=== PATIENT | female | born 1955 | race Caucasian/White ===

== ENCOUNTER 2016-12-16 04:46 | Inpatient (IN) | payer OTHER ==
[~2016-12-16] VITALS: Ht 162.6 cm; Wt 56.2 kg
[2016-12-16 07:00] VITALS: BP 132/71; PULSE 98; RESP 18
[2016-12-16 07:44] VITALS: BMI 21.7
[2016-12-16] MEDS ORDERED: HYDROCODONE/APAP (5/325) TAB PO PRN (09:30)
[2016-12-16] MEDS ORDERED: morphine 2 MG INJ IV PRN (09:30)
[2016-12-16] MEDS ORDERED: ONDANSETRON 4 MG INJ IV PRN (09:30)
[2016-12-16] MEDS ORDERED: NACL 0.9% 3 ML SYG IV SCH (09:30)
[2016-12-16] MEDS ORDERED: DOCUSATE SODIUM 100 MG CAP PO PRN (09:30)
[2016-12-16] MEDS ORDERED: ZOLPIDEM 5 MG TAB PO PRN (09:30)
--- NOTE | 2016-12-16 10:47 | HP ---
Date/Time of Note Date/Time of Note DATE: 12/16/16 TIME: 10:38 Assessment/Plan VTE Prophylaxis VTE Prophylaxis Intervention: SCD's Lines/Catheters IV [facility]from [facility] Saline Lock Assessment/Plan Chief Complaint/Hosp Course 1. Pleuritic chest pain secondary to left-sided pleural effusion with possible underlying lung mass Patient has no evidence of ACS with normal EKG and troponin at outside facility , pain is related to the left-sided pleural effusion CT at outside hospital shows questionable malignancy Repeat CT chest with IV contrast will obtain CT abdomen pelvis with IV contrast as well Follow-up on tumor markers Pain control Pulmonology consultation Thoracentesis for diagnostic evaluation if the patient has sufficient fluid, will follow-up on CT chest Prophylaxis: SCDs Problems: HPI/ROS Admit Date/Time Admit Date/Time Dec 16, 2016 at 07:37 Hx of Present Illness Patient is a 61-year-old female with no medical history. Patient presents with left-sided chest pain for 2 months as well as 18 pound weight loss over the past 3 months. Patient states that she has been feeling somewhat depressed over the past month. Patient states that she receives routine monitoring for malignancy as she has a strong family history for breast cancer and uterine cancer. Patient states that she had colonoscopy a year ago that was negative as well as Pap smear and mammogram a year ago that were also normal. Patient presented to an outside hospital where she had a CT chest that showed a mass in the left chest concerning for malignancy, patient has no history of tobacco abuse and no history of exposure to industrial chemicals. Patient states that the pain is in her left chest as well as her left axillary region extending into her left back. Patient denies any cardiac history denies any nausea vomiting or diarrhea. ROS Constitutional: improved, no complaints Eyes: no complaints ENT: no complaints Respiratory: no complaints Cardiovascular: chest pain Gastrointestinal: no complaints Genitourinary: no complaints Musculoskeletal: no complaints Skin: no complaints Neurologic: no complaints Endocrine: no complaints Lymphatic: no complaints Psychological: nl mood/affect, no complaints Immunologic: no complaints PMH/Family/Social Past Medical History Medical History: no pertinent history Past Surgical History Past Surgical Hx: no surgical history Family History Significant Family History: cancer (History of breast cancer and uterine cancer in her family ) Social History Alcohol Use: none Smoking Status: Never smoker Drug Use: none Exam/Review of Systems Vital Signs Vitals Vital Signs Date Time Temp Pulse Resp B/P Pulse Ox O2 Delivery O2 Flow Rate FiO2 12/16/16 07:00 98.5 98 18 132/71 96 Room Air Exam Constitutional: alert, oriented Respiratory: clear to auscultation Cardiovascular: regular rate and rhythm Gastrointestinal: soft, No distended Musculoskeletal: nl extremities to inspection Medications Medications Current Medications Ondansetron HCl (Zofran Inj) 4 mg Q6H PRN IV NAUSEA AND/OR VOMITING; Start at 09:30 Acetaminophen (Tylenol Tab) 650 mg Q6H PRN PO PAIN LEVEL 1-3 OR FEVER; Start at 09:30 Acetaminophen/ Hydrocodone Bitart ([place] (5/325)) 1 tab Q6H PRN PO MODERATE PAIN LEVEL 4-6; Start 12/16/16 at 09:30 Morphine Sulfate (morphine) 2 mg Q4H PRN IV SEVERE PAIN LEVEL 7-10; Start 12/16 at 09:30 Docusate Sodium (Colace) 100 mg Q12H PRN PO CONSTIPATION; Start 12/16/16 at 09: 30 Zolpidem Tartrate 5 mg 5 mg QHS PRN PO SLEEP; Start 12/16/16 at 09:30 Sodium Chloride (1/2 NS) 1,000 ml @ 125 mls/hr Q8H IV ; Start 12/16/16 at 10:30 DARY PAZ Dec 16, 2016 10:47
[2016-12-16] MEDS ORDERED: IBUPROFEN 400 MG TAB PO PRN (11:00)
[2016-12-16] MEDS: SOD CHLORIDE 0.45% 1,000 ML IV SCH ×2 (11:03→17:53)
[2016-12-16] MEDS: ACETAMINOPHEN 325 MG TAB PO PRN (11:03)
[2016-12-16 12:58] LABS: CANCER ANTIGEN 125 43.6 U/ml (0.0-35.0); CARCINOEMBRYONIC ANTIGEN 1.1 ng/ml (0.0-5.0)
[2016-12-16 13:02] LABS: CANCER ANTIGEN 19-9 17.9 U/ml (0.0-37.0)
[2016-12-16] MEDS ORDERED: IOHEXOL 300MG/ML 150 ML BTL ONE (14:40)
[2016-12-16] MEDS ORDERED: SOD CHLORIDE 0.9% 100 ML ONE (14:40)
[2016-12-16 19:22] VITALS: BP 134/74; RESP 22
[2016-12-17] MEDS: SOD CHLORIDE 0.45% 1,000 ML IV SCH ×3 (02:00→18:12)
[2016-12-17 05:27] LABS: BASOPHILS % 0.5 % (0.0-2.0); EOSINOPHILS # 0.1 10^3/ul (0.0-0.5); EOSINOPHILS % 0.6 % (0.0-7.0); HEMATOCRIT 36.7 % (37.0-47.0); HEMOGLOBIN 12.4 g/dl (12.0-16.0); LYMPHOCYTES # 2.3 10^3/ul (0.8-2.9); LYMPHOCYTES % 28.9 % (15.0-51.0); MEAN CORPUSCULAR HEMOGLOBIN 30.2 pg (29.0-33.0); MEAN CORPUSCULAR HGB CONC 33.8 g/dl (32.0-37.0); MEAN CORPUSCULAR VOLUME 89.3 fl (82.0-101.0); MEAN PLATELET VOLUME 9.6 fl (7.4-10.4); MONOCYTE # 0.6 10^3/ul (0.3-0.9); MONOCYTES % 7.9 % (0.0-11.0); NEUTROPHIL # 4.9 10^3/ul (1.6-7.5); NEUTROPHILS % 61.8 % (39.0-77.0); PLATELET COUNT 362 10^3/UL (140-415); RED BLOOD COUNT 4.11 10^6/ul (4.20-5.40); RED CELL DISTRIBUTION WIDTH 13.2 % (11.5-14.5)
[2016-12-17 05:49] LABS: CALCIUM 9.6 mg/dl (8.4-10.2); CHOL/HDL RATIO 4.2 RATIO; CREATININE 0.58 mg/dl (0.44-1.00); MAGNESIUM 1.9 mg/dl (1.7-2.5); PHOSPHORUS 3.8 mg/dl (2.5-4.9); POTASSIUM 4.1 mmol/L (3.5-5.1)
[2016-12-17 06:02] LABS: T3 UPTAKE 34.1 % (23.5-40.5)
--- NOTE | 2016-12-17 09:18 | RADRPT ---
PROCEDURE: CT Chest, Abdomen and Pelvis with contrast. CLINICAL INDICATION: Chest pain. Left pleural effusion for 2 months. Weight loss of 18 pounds ov er the past 3 months. TECHNIQUE: CT scan of the chest, abdomen, and pelvis with intravenous contrast was performed with helical axial sections. The patient was scanned during intravenous injection of 100 ml of Omnipaque -300 intravenous contrast. 2-D coronal reformatted images were obtained from the axial source image s. Total exam DLP is 499.80 mGy-cm. CTDIvol is 7.08 MGy. One or more of the following dose reduct ion techniques were used: Automated exposure control, adjustment of the mA and/or kV according to pa tient size, use of iterative reconstruction technique. COMPARISON: None available FINDINGS: CT chest: There is a spiculated nodule in the left lung apex measuring approximately 3.4 x 2.7 cm in AP and tr ansverse dimensions. There are several other pulmonary nodules with a 1.0 x 1.4 cm nodule in the silva perior segment of the left lower lobe superiorly, multiple small nodules and the irregular thickenin g along the left major fissure, a large nodule in the left major fissure laterally measuring 1.1 x 1 .2 cm, a nodule in the lingula superiorly measuring 1.3 x 0.7 cm, a nodule in the left lower lobe an terior basal segment measuring 0.9 x 0.6 cm, a nodule in the lingula inferiorly measuring 1.1 x 0.8 cm, a nodule in the left lung base measuring 0.9 by a 0.8 cm, and a peripheral pleural based nodule in the right upper lobe measuring 0.3 cm. There is a small left pleural effusion and associated left basilar atelectasis. There is no right p leural effusion. There is no other airspace or interstitial disease. The mediastinum and мария are normal with no lymphadenopathy or mass. The thoracic aorta is not dilated. There is calcification in the aorta consistent with atheroscleros is. There is no pericardial effusion. The heart size is normal. CT abdomen: The liver is normal in size and attenuation. There are several small low attenuation nodules with a 0.8 x 0.5 cm nodule in the lateral segment of the left lobe, a 0.6 x 0.6 cm nodule in the lateral s egment of the left lobe inferiorly, a 0.5 x 0.5 cm nodule inferiorly in the posterior segment of the right lower lobe, and a 0.9 x 0.6 cm nodule in the posterior segment of the right lobe inferiorly. Multiple gallstones are present in the gallbladder. There is no gallbladder wall thickening or flui d around the gallbladder. The bile ducts are normal. The spleen is normal in size. There is no focal splenic lesion. The pancreas is normal with no mass or evidence of pancreatitis. Both adrenals are normal with no enlargement or mass. Both kidneys demonstrate normal contrast enhancement. There is no renal mass or hydronephrosis. The abdominal aorta is not dilated. There is calcification in the aorta consistent with atherosclero sis. There is no retroperitoneal lymphadenopathy or mass. There is diverticulosis of the descending colon and sigmoid colon. There is no evidence of divertic ulitis. The bowel and mesentery are otherwise normal. There is no free fluid or free gas. CT pelvis: There is no pelvic lymphadenopathy or mass. The bladder and distal ureters are normal. The periappendiceal region is unremarkable with no evidence of appendicitis. There is diverticulosis of the descending colon and sigmoid colon. There is no evidence of divertic ulitis. The bowel and mesentery are otherwise normal. There is no free fluid or free gas. Osseous structures: There are mild degenerative changes of the spine. There is no fracture or lytic lesion. IMPRESSION: 1. Spiculated nodule in the left lung apex measuring 3.4 x 2.7 cm consistent with neoplasm. Multip le smaller nodules throughout the left lung and a single small nodule in the right lung. These are also suspicious for neoplasm. 2. Atherosclerosis. 3. Several small low attenuation nodules in the liver which may be benign or malignant. The larges t measures 0.9 cm in maximal dimension. 4. Gallstones in the gallbladder. No evidence of cholecystitis. 5. Diverticulosis of the descending colon and sigmoid colon. No evidence of diverticulitis. 6. Mild degenerative changes of the spine. RPTAT: QQ .Geremias Kc MD, MD Date Time Electronically viewed and signed by .Geremias Kc MD, on 12/17/2016 09:18 .R/
[2016-12-17 09:43] VITALS: BP 116/56; RESP 18
--- NOTE | 2016-12-17 13:06 | CONS ---
Date/Time of Note Date/Time of Note DATE: 12/17/16 TIME: 13:01 Assessment/Plan Assessment/Plan Additional Assessment/Plan CT chest was reviewed from yesterday which is showing a large left upper lobe apical mass with atelectasis involving the left lower lobe as well. There is a small left pleural effusion. Multiple other small nodules are identified in the left upper lobe area as well. Assessment recommendations; 1. Patient admitted with shortness of breath as well as chest pain due to left lower lobe atelectasis with pleurisy. 2. CT findings are highly worrisome for lung malignancy with possibly intrapulmonary metastasis. 3. Likely left lower lobe endobronchial lesion as well. Patient is scheduled for bronchoscopy tomorrow the procedure was explained to her in detail she is agreeable. If the bronchoscopy is nondiagnostic patient would need to have a CT-guided biopsy of the left upper lobe mass lesion. Consultation Date/Type/Reason Admit Date/Time Dec 16, 2016 at 07:37 Date of Consultation: Dec 17, 2016 Type of Consultation: Pulmonary Reason for Consultation Pulmonary consultation requested for evaluation of left upper lobe lung mass. History presenting; patient is a very pleasant 61-year-old lady who came into the emergency room yesterday with complaints of shortness of breath as well as left-sided chest pain which is brought on by deep breathing and walking. Patient also complains of scant cough without any sputum production or hemoptysis. Patient has lost 18 pounds over the last 2 or 3 months. Past medical history; history of breast implants. No other medical history. Medications; reviewed. Allergies; penicillin. Social history; patient never smoked. No history of alcohol or drug abuse. 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 Family history; family history of breast cancer. Patient has 2 daughters. She is . Review systems; denies any headache, visual changes, sinus symptoms, denies any hemoptysis. Complains of cough with left-sided sharp chest pain brought on by deep breathing. Has lost 15-18 pounds over the last 2-3 months. Denies any abdominal pain, nausea vomiting. Melena hematochezia edema. Denies any arthritis symptoms. Any skin changes. General exam; middle-aged woman, awake alert currently in no distress. Eyes: no complaints ENT: no complaints Respiratory: no complaints Cardiovascular: chest pain Gastrointestinal: no complaints Genitourinary: no complaints Musculoskeletal: no complaints Skin: no complaints Neurologic: no complaints Lymphatic: no complaints Psychological: nl mood/affect, no complaints Immunologic: no complaints Past Medical History Medical History: no pertinent history Past Surgical History Past Surgical Hx: no surgical history Social History Alcohol Use: none Smoking Status: Never smoker Drug Use: none Exam/Review of Systems Vital Signs Vitals Vital Signs Date Time Temp Pulse Resp B/P Pulse Ox O2 Delivery O2 Flow Rate FiO2 12/17/16 09:43 98.1 82 18 116/56 96 12/16/16 07:00 Room Air Intake and Output 12/16/16 12/16/16 12/17/16 15:00 23:00 07:00 Intake Total 1900 ml 1725 ml Balance 1900 ml 1725 ml Exam HEENT exam; supple neck, no JVD. No lymphadenopathy. Midline trachea. No thyromegaly. Pharynx is clear. Patient has a few missing teeth. Pupils are midsize and reactive to light. Chest exam; diminished breath sound left lower lobe. Rest of the lung souza are clear. S1-S2 audible, no murmurs. Regular rhythm. Abdomen exam; soft, nondistended. Nontender. No organomegaly. Bowel sounds audible. Extremity exam; no peripheral edema. No clubbing. Pulses 2+ bilaterally. [employer] exam; no focal deficit. Results Result Diagram: 12/17/165 12/17/165 Results 24 hrs Laboratory Tests Test 12/17/16 04:55 White Blood Count 8.0 Red Blood Count 4.11 L Hemoglobin 12.4 Hematocrit 36.7 L Mean Corpuscular Volume 89.3 Mean Corpuscular Hemoglobin 30.2 Mean Corpuscular Hemoglobin Concent 33.8 Red Cell Distribution Width 13.2 Platelet Count 362 Mean Platelet Volume 9.6 Neutrophils % 61.8 Lymphocytes % 28.9 Monocytes % 7.9 Eosinophils % 0.6 Basophils % 0.5 Nucleated Red Blood Cells % 0.0 Neutrophils # 4.9 Lymphocytes # 2.3 Monocytes # 0.6 Eosinophils # 0.1 Basophils # 0.0 Nucleated Red Blood Cells # 0.0 Sodium Level 143 Potassium Level 4.1 Chloride Level 101 Carbon Dioxide Level 29 Anion Gap 17 H Blood Urea Nitrogen 9 Creatinine 0.58 Glucose Level 94 Hemoglobin A1c 5.8 Calcium Level 9.6 Phosphorus Level 3.8 Magnesium Level 1.9 Troponin I < 0.012 Triglycerides Level 103 Cholesterol Level 190 LDL Cholesterol, Calculated 124 HDL Cholesterol 45 Cholesterol/HDL Ratio 4.2 Free Thyroxine Index 3.51 Thyroxine (T4) 10.3 Triiodothyronine (T3) Uptake 34.1 Medications Medications Current Medications Ondansetron HCl (Zofran Inj) 4 mg Q6H PRN IV NAUSEA AND/OR VOMITING; Start at 09:30 Acetaminophen (Tylenol Tab) 650 mg Q6H PRN PO PAIN LEVEL 1-3 OR FEVER Last administered on 12/16/16 11:03; Admin Dose 650 MG; Start 12/16/16 at 09:30 Acetaminophen/ Hydrocodone Bitart ([place] (5/325)) 1 tab Q6H PRN PO MODERATE PAIN LEVEL 4-6; Start 12/16/16 at 09:30 Morphine Sulfate (morphine) 2 mg Q4H PRN IV SEVERE PAIN LEVEL 7-10; Start 12/16 at 09:30 Docusate Sodium (Colace) 100 mg Q12H PRN PO CONSTIPATION; Start 12/16/16 at 09: 30 Zolpidem Tartrate 5 mg 5 mg QHS PRN PO SLEEP; Start 12/16/16 at 09:30 Sodium Chloride (1/2 NS) 1,000 ml @ 125 mls/hr Q8H IV Last administered on 02:00; Admin Dose 125 MLS/HR; Start 12/16/16 at 10:30 Ibuprofen (Motrin) 400 mg Q6H PRN PO PAIN OR TEMP ABOVE 38C; Start 12/16/16 at 11:00 KARINA POLANCO Dec 17, 2016 13:06
--- NOTE | 2016-12-17 17:45 | PN ---
Date/Time of Note Date/Time of Note DATE: 12/17/16 TIME: 17:37 Assessment/Plan VTE Prophylaxis VTE Prophylaxis Intervention: SCD's Lines/Catheters [facility] Peripheral IV Assessment/Plan Chief Complaint/Hosp Course 1. Pleuritic chest pain secondary to left-sided pleural effusion with underlying lung masses CT scan chest shows mass in the left chest with multiple smaller nodules as well as a nodule in the right lung Pulmonology consultation appreciated, plan is for bronchoscopy tomorrow with possible biopsy, if biopsy cannot be obtained via bronchoscopy the patient will need a CT-guided biopsy CT abdomen pelvis shows no obvious malignancy in the abdomen Have obtained oncology consultation with Dr. Bonilla Pain control Of note patient has no history of tobacco abuse or exposure to industrial chemicals Thoracentesis per pulmonology, at this point it appears that there is insufficient fluid for paracentesis Prophylaxis: SCDs Problems: Subjective 24 Hr Interval Summary Constitutional: no complaints Exam/Review of Systems Vital Signs Vitals Vital Signs Date Time Temp Pulse Resp B/P Pulse Ox O2 Delivery O2 Flow Rate FiO2 12/17/16 09:43 98.1 82 18 116/56 96 12/16/16 07:00 Room Air Intake and Output 12/16/16 12/16/16 12/17/16 15:00 23:00 07:00 Intake Total 1900 ml 1725 ml Balance 1900 ml 1725 ml Exam Constitutional: alert, oriented Respiratory: clear to auscultation Cardiovascular: regular rate and rhythm Gastrointestinal: soft, No distended Musculoskeletal: nl extremities to inspection Results Result Diagram: 12/17/16 0455 12/17/16 0455 Results 24 hrs Laboratory Tests Test 12/17/16 04:55 White Blood Count 8.0 Red Blood Count 4.11 L Hemoglobin 12.4 Hematocrit 36.7 L Mean Corpuscular Volume 89.3 Mean Corpuscular Hemoglobin 30.2 Mean Corpuscular Hemoglobin Concent 33.8 Red Cell Distribution Width 13.2 Platelet Count 362 Mean Platelet Volume 9.6 Neutrophils % 61.8 Lymphocytes % 28.9 Monocytes % 7.9 Eosinophils % 0.6 Basophils % 0.5 Nucleated Red Blood Cells % 0.0 Neutrophils # 4.9 Lymphocytes # 2.3 Monocytes # 0.6 Eosinophils # 0.1 Basophils # 0.0 Nucleated Red Blood Cells # 0.0 Sodium Level 143 Potassium Level 4.1 Chloride Level 101 Carbon Dioxide Level 29 Anion Gap 17 H Blood Urea Nitrogen 9 Creatinine 0.58 Glucose Level 94 Hemoglobin A1c 5.8 Calcium Level 9.6 Phosphorus Level 3.8 Magnesium Level 1.9 Troponin I < 0.012 Triglycerides Level 103 Cholesterol Level 190 LDL Cholesterol, Calculated 124 HDL Cholesterol 45 Cholesterol/HDL Ratio 4.2 Free Thyroxine Index 3.51 Thyroxine (T4) 10.3 Triiodothyronine (T3) Uptake 34.1 Medications Medications Current Medications Ondansetron HCl (Zofran Inj) 4 mg Q6H PRN IV NAUSEA AND/OR VOMITING; Start at 09:30 Acetaminophen (Tylenol Tab) 650 mg Q6H PRN PO PAIN LEVEL 1-3 OR FEVER Last administered on 12/16/16 11:03; Admin Dose 650 MG; Start 12/16/16 at 09:30 Acetaminophen/ Hydrocodone Bitart ([place] (5/325)) 1 tab Q6H PRN PO MODERATE PAIN LEVEL 4-6; Start 12/16/16 at 09:30 Morphine Sulfate (morphine) 2 mg Q4H PRN IV SEVERE PAIN LEVEL 7-10; Start 12/16 at 09:30 Docusate Sodium (Colace) 100 mg Q12H PRN PO CONSTIPATION; Start 12/16/16 at 09: 30 Zolpidem Tartrate 5 mg 5 mg QHS PRN PO SLEEP; Start 12/16/16 at 09:30 Sodium Chloride (1/2 NS) 1,000 ml @ 125 mls/hr Q8H IV Last administered on 02:00; Admin Dose 125 MLS/HR; Start 12/16/16 at 10:30 Ibuprofen (Motrin) 400 mg Q6H PRN PO PAIN OR TEMP ABOVE 38C; Start 12/16/16 at 11:00 DARY PAZ Dec 17, 2016 17:45
[2016-12-17 20:52] VITALS: BP 124/66; RESP 16
[2016-12-18] MEDS: SOD CHLORIDE 0.45% 1,000 ML IV SCH ×3 (05:22→18:30)
[2016-12-18 05:44] LABS: CALCIUM 9.9 mg/dl (8.4-10.2); CREATININE 0.62 mg/dl (0.44-1.00); POTASSIUM 3.9 mmol/L (3.5-5.1)
--- NOTE | 2016-12-18 08:58 | CONS ---
Date/Time of Note Date/Time of Note DATE: 12/18/16 TIME: 08:56 Assessment/Plan Assessment/Plan Additional Assessment/Plan Assessment and recommendations; 1. Patient admitted with pleuritic left chest pain with discovery of large left upper lobe apical mass with possibly left lower lobe endobronchial lesion causing atelectasis. There is also high clinical suspicion of left intrapulmonary metastasis. Continue current treatment. Patient scheduled for a bronchoscopy today, if the bronchoscopy findings are negative then the patient would need to have a CT- guided biopsy of the left upper lobe mass lesion. I did have a very detailed discussion with the patient's daughter as well as the patient herself in the room and answered all their questions. Consultation Date/Type/Reason Admit Date/Time Dec 16, 2016 at 07:37 Initial Consult Date 12/17/16 Type of Consultation: Pulmonary 24 HR Interval Summary Free Text/Dictation Patient's condition is stable. Denies any further chest pain, shortness of breath. Denies any cough, sputum production or hemoptysis. General exam; middle-aged woman, awake alert currently in no distress. Exam/Review of Systems Vital Signs Vitals Vital Signs Date Time Temp Pulse Resp B/P Pulse Ox O2 Delivery O2 Flow Rate FiO2 12/17/16 20:52 98.2 86 16 124/66 98 12/16/16 07:00 Room Air Intake and Output 12/17/16 12/17/16 12/18/16 15:00 23:00 07:00 Intake Total 1320 ml 1300 ml Balance 1320 ml 1300 ml Exam HEENT exam; supple neck, no JVD. No lymphadenopathy. Midline trachea. No thyromegaly. Pharynx is clear. Patient has multiple missing teeth. Chest exam; diminished breath sounds left lower lobe. Rest of the lung souza are clear. S1-S2 audible, no murmurs. Regular rhythm. Abdomen exam; soft, no organomegaly. Bowel sounds audible. Extremity exam; no peripheral edema. No clubbing. Pulses 1+ bilaterally. 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 Results Result Diagram: 12/17/16 0455 12/18/16 0459 Results 24 hrs Laboratory Tests Test 12/18/16 04:59 Sodium Level 144 Potassium Level 3.9 Chloride Level 99 Carbon Dioxide Level 29 Anion Gap 20 H Blood Urea Nitrogen 14 Creatinine 0.62 Glucose Level 102 Calcium Level 9.9 Medications Medications Current Medications Ondansetron HCl (Zofran Inj) 4 mg Q6H PRN IV NAUSEA AND/OR VOMITING; Start at 09:30 Acetaminophen (Tylenol Tab) 650 mg Q6H PRN PO PAIN LEVEL 1-3 OR FEVER Last administered on 12/16/16 11:03; Admin Dose 650 MG; Start 12/16/16 at 09:30 Acetaminophen/ Hydrocodone Bitart ([place] (5/325)) 1 tab Q6H PRN PO MODERATE PAIN LEVEL 4-6; Start 12/16/16 at 09:30 Morphine Sulfate (morphine) 2 mg Q4H PRN IV SEVERE PAIN LEVEL 7-10; Start 12/16 at 09:30 Docusate Sodium (Colace) 100 mg Q12H PRN PO CONSTIPATION; Start 12/16/16 at 09: 30 Zolpidem Tartrate 5 mg 5 mg QHS PRN PO SLEEP; Start 12/16/16 at 09:30 Sodium Chloride (1/2 NS) 1,000 ml @ 125 mls/hr Q8H IV Last administered on 05:22; Admin Dose 125 MLS/HR; Start 12/16/16 at 10:30 Ibuprofen (Motrin) 400 mg Q6H PRN PO PAIN OR TEMP ABOVE 38C; Start 12/16/16 at 11:00 KARINA POLANCO Dec 18, 2016 08:58
[2016-12-18 09:29] VITALS: BP 115/71; RESP 18
--- NOTE | 2016-12-18 14:27 | PN ---
Date/Time of Note Date/Time of Note DATE: 12/18/16 TIME: 14:27 Assessment/Plan VTE Prophylaxis VTE Prophylaxis Intervention: SCD's Lines/Catheters IV [facility] Type (from [facility]): Saline Lock Assessment/Plan Chief Complaint/Hosp Course 1. Spiculated nodule in the left lung apex measuring 3.42.7 cm. Possible neoplasm. The patient being followed by pulmonology. The patient is scheduled for a bronchoscopy on 12/19/2016. Oncology to follow the patient. 2. Atypical chest pain. Most probably secondary to underlying left-sided spiculated lung mass. Largely resolved. 3. Fluids, electrolytes, and nutrition. Regular diet. 4. DVT prophylaxis with bilateral sequential compression devices. 5. Gastrointestinal prophylaxis. Not indicated. 6. Plan. Continue current management. Await bronchoscopy. Case discussed with Dr. Bolton. Problems: Subjective 24 Hr Interval Summary Free Text/Dictation Denies any chest pain. Complains of dry cough. Exam/Review of Systems Vital Signs Vitals Vital Signs Date Time Temp Pulse Resp B/P Pulse Ox O2 Delivery O2 Flow Rate FiO2 12/18/16 09:29 98.1 85 18 115/71 96 12/16/16 07:00 Room Air Intake and Output 12/17/16 12/17/16 12/18/16 15:00 23:00 07:00 Intake Total 1320 ml 1300 ml Balance 1320 ml 1300 ml Exam General: Adequately build 61 year-old female lying in bed in no apparent distress. HEENT: Normocephalic, atraumatic. Eyes: Anicteric sclerae, conjunctivae clear. ENT: Nasal septum midline, oral mucosa moist. Neck supple, no JVD noticed. Respiratory: Bilaterally clear breath sounds. No use of accessory muscles of respiration. No adventitious breath sounds. Cardiovascular: S1, S2 heard. No murmurs or gallops. Abdomen: Soft, nontender, and nondistended. Bowel sounds positive in all 4 quadrants. Genitourinary: Deferred. Extremities: No cyanosis, no clubbing, no edema. Peripheral pulses palpable. Neurologic: Cranial nerves II through XII grossly intact. The patient is awake, alert, and oriented. Skin: Normal skin turgor. No skin rashes. Results Result Diagram: 12/17/16 0455 12/18/16 0459 Results 24 hrs Laboratory Tests Test 12/18/16 04:59 Sodium Level 144 Potassium Level 3.9 Chloride Level 99 Carbon Dioxide Level 29 Anion Gap 20 H Blood Urea Nitrogen 14 Creatinine 0.62 Glucose Level 102 Calcium Level 9.9 Medications Medications Current Medications Ondansetron HCl (Zofran Inj) 4 mg Q6H PRN IV NAUSEA AND/OR VOMITING; Start at 09:30 Acetaminophen (Tylenol Tab) 650 mg Q6H PRN PO PAIN LEVEL 1-3 OR FEVER Last administered on 12/16/16 11:03; Admin Dose 650 MG; Start 12/16/16 at 09:30 Acetaminophen/ Hydrocodone Bitart ([place] (5/325)) 1 tab Q6H PRN PO MODERATE PAIN LEVEL 4-6; Start 12/16/16 at 09:30 Morphine Sulfate (morphine) 2 mg Q4H PRN IV SEVERE PAIN LEVEL 7-10; Start 12/16 at 09:30 Docusate Sodium (Colace) 100 mg Q12H PRN PO CONSTIPATION; Start 12/16/16 at 09: 30 Zolpidem Tartrate 5 mg 5 mg QHS PRN PO SLEEP; Start 12/16/16 at 09:30 Sodium Chloride (1/2 NS) 1,000 ml @ 125 mls/hr Q8H IV Last administered on 05:22; Admin Dose 125 MLS/HR; Start 12/16/16 at 10:30 Ibuprofen (Motrin) 400 mg Q6H PRN PO PAIN OR TEMP ABOVE 38C; Start 12/16/16 at 11:00 SREEDHAR COOK NP Dec 18, 2016 14:27
--- NOTE | 2016-12-18 15:16 | CONS ---
Date/Time of Note Date/Time of Note DATE: 12/18/16 TIME: 14:51 Assessment/Plan Assessment/Plan Chief Complaint/Hosp Course 61 yo female with a left upper lobe apical mass as well numerous left lung nodules concerning for intrapulmonary metastasis. Pt's CT Abdomen demonstrates lesions concerning for liver metastasis. Pt is scheduled for bronchoscopy today. If the bronchoscopy is positive for malignancy, we will need to further evaluate the liver to see if there is in fact metastatic disease in the liver. I have reviewed the scan with the radiologist who states that the liver lesions are too small to biopsy at this time. -f/u results of bronchoscopic bx -will check CEA for now -further recommendations will be based on above findings. Problems: (1) Lung cancer Qualifiers: Consultation Date/Type/Reason Admit Date/Time Dec 16, 2016 at 07:37 Date of Consultation: Dec 18, 2016 Type of Consultation: oncology Reason for Consultation lung mass Referring Provider: DARY PAZ Hx of Present Illness 61-year-old non smoking female with no significant PMH who presents to [facility] with 2 months of Left sided chest pain accompanied by an 18lb weight loss over 3 months. Patient presented to an outside hospital with similar sx where a CT chest that showed a mass in the left chest concerning for malignancy. She does endorse SOB with her chest pain as well as scant cough without any sputum production or hemoptysis. A Ct chest/ Abdomen and pelvis was done which demonstrated a Spiculated nodule in the left lung apex measuring 3.4 x 2.7 cm consistent with neoplasm as well as m ultiple smaller nodules throughout the left lung and a single small nodule in the right lung. These are also suspicious for neoplasm. Also seen are several small low attenuation nodules in the liver which may be benign or malignant. The largest measures 0.9 cm in maximal dimension. Constitutional: no complaints Eyes: no complaints ENT: no complaints Respiratory: no complaints Cardiovascular: chest pain Gastrointestinal: no complaints Genitourinary: no complaints Musculoskeletal: no complaints Skin: no complaints Neurologic: no complaints Lymphatic: no complaints Psychological: nl mood/affect, no complaints Immunologic: no complaints Past Medical History Medical History: no pertinent history Past Surgical History Past Surgical Hx: no surgical history Family History Significant Family History: no pertinent family hx Social History Alcohol Use: none Smoking Status: Never smoker Drug Use: none Exam/Review of Systems Vital Signs Vitals Vital Signs Date Time Temp Pulse Resp B/P Pulse Ox O2 Delivery O2 Flow Rate FiO2 12/18/16 09:29 98.1 85 18 115/71 96 12/16/16 07:00 Room Air Intake and Output 12/17/16 12/17/16 12/18/16 15:00 23:00 07:00 Intake Total 1320 ml 1300 ml Balance 1320 ml 1300 ml Exam Constitutional: alert, oriented Psych: no complaints Head: atraumatic, normocephalic Eyes: nl conjunctiva ENMT: nl external ears & nose Neck: non-tender, supple Respiratory: clear to auscultation Cardiovascular: nl pulses, regular rate and rhythm Gastrointestinal: soft Musculoskeletal: nl extremities to inspection, nl gait and stance Extremities: normal pulses Results Result Diagram: 12/17/16 0455 12/18/16 0459 Results 24 hrs Laboratory Tests Test 12/18/16 04:59 Sodium Level 144 Potassium Level 3.9 Chloride Level 99 Carbon Dioxide Level 29 Anion Gap 20 H Blood Urea Nitrogen 14 Creatinine 0.62 Glucose Level 102 Calcium Level 9.9 Medications Medications Current Medications Ondansetron HCl (Zofran Inj) 4 mg Q6H PRN IV NAUSEA AND/OR VOMITING; Start at 09:30 Acetaminophen (Tylenol Tab) 650 mg Q6H PRN PO PAIN LEVEL 1-3 OR FEVER Last administered on 12/16/16 11:03; Admin Dose 650 MG; Start 12/16/16 at 09:30 Acetaminophen/ Hydrocodone Bitart ([place] (5/325)) 1 tab Q6H PRN PO MODERATE PAIN LEVEL 4-6; Start 12/16/16 at 09:30 Morphine Sulfate (morphine) 2 mg Q4H PRN IV SEVERE PAIN LEVEL 7-10; Start 12/16 at 09:30 Docusate Sodium (Colace) 100 mg Q12H PRN PO CONSTIPATION; Start 12/16/16 at 09: 30 Zolpidem Tartrate 5 mg 5 mg QHS PRN PO SLEEP; Start 12/16/16 at 09:30 Sodium Chloride (1/2 NS) 1,000 ml @ 125 mls/hr Q8H IV Last administered on 05:22; Admin Dose 125 MLS/HR; Start 12/16/16 at 10:30 Ibuprofen (Motrin) 400 mg Q6H PRN PO PAIN OR TEMP ABOVE 38C; Start 12/16/16 at 11:00 MELONY TAVAREZ M.D. Dec 18, 2016 15:02
[2016-12-18 19:51] VITALS: BP 109/66; RESP 18
[2016-12-19] VITALS (18 sets, daily range): BP systolic 111–146; BP diastolic 54–87; PULSE 66–91; RESP 16–23; Ht 162.6 cm; Wt 56.2 kg
[2016-12-19] MEDS: SOD CHLORIDE 0.45% 1,000 ML IV SCH ×4 (02:30→23:46)
--- NOTE | 2016-12-19 07:14 | PN ---
Date/Time of Note Date/Time of Note DATE: 12/19/16 TIME: 07:13 Assessment/Plan VTE Prophylaxis VTE Prophylaxis Intervention: SCD's Lines/Catheters [facility] [place] Assessment/Plan Chief Complaint/Hosp Course 1. Spiculated nodule in the left lung apex measuring 3.42.7 cm. Possible neoplasm. The patient being followed by pulmonology and oncology. The patient is scheduled for a bronchoscopy on 12/19/2016. 2. Atypical chest pain. Most probably secondary to underlying left-sided spiculated lung mass. Largely resolved. 3. Fluids, electrolytes, and nutrition. Regular diet. 4. DVT prophylaxis with bilateral sequential compression devices. 5. Gastrointestinal prophylaxis. Not indicated. 6. Plan. Continue current management. Await bronchoscopy. Case discussed with Dr. Bolton. Problems: Subjective 24 Hr Interval Summary Free Text/Dictation The patient remains afebrile. Vital signs stable. Exam/Review of Systems Vital Signs Vitals Vital Signs Date Time Temp Pulse Resp B/P Pulse Ox O2 Delivery O2 Flow Rate FiO2 12/18/16 19:51 97.7 89 18 109/66 98 12/16/16 07:00 Room Air Intake and Output 12/18/16 12/18/16 12/19/16 15:00 23:00 07:00 Intake Total 2100 ml 1250 ml Balance 2100 ml 1250 ml Exam General: Adequately build 61 year-old female lying in bed in no apparent distress. HEENT: Normocephalic, atraumatic. Eyes: Anicteric sclerae, conjunctivae clear. ENT: Nasal septum midline, oral mucosa moist. Neck supple, no JVD noticed. Respiratory: Bilaterally clear breath sounds. No use of accessory muscles of respiration. No adventitious breath sounds. Cardiovascular: S1, S2 heard. No murmurs or gallops. Abdomen: Soft, nontender, and nondistended. Bowel sounds positive in all 4 quadrants. Genitourinary: Deferred. Extremities: No cyanosis, no clubbing, no edema. Peripheral pulses palpable. Neurologic: Cranial nerves II through XII grossly intact. The patient is awake, alert, and oriented. Skin: Normal skin turgor. No skin rashes. Results Result Diagram: 12/17/16 0455 12/18/16 0459 Medications Medications Current Medications Ondansetron HCl (Zofran Inj) 4 mg Q6H PRN IV NAUSEA AND/OR VOMITING; Start at 09:30 Acetaminophen (Tylenol Tab) 650 mg Q6H PRN PO PAIN LEVEL 1-3 OR FEVER Last administered on 12/16/16 11:03; Admin Dose 650 MG; Start 12/16/16 at 09:30 Acetaminophen/ Hydrocodone Bitart ([place] (5/325)) 1 tab Q6H PRN PO MODERATE PAIN LEVEL 4-6; Start 12/16/16 at 09:30 Morphine Sulfate (morphine) 2 mg Q4H PRN IV SEVERE PAIN LEVEL 7-10; Start 12/16 at 09:30 Docusate Sodium (Colace) 100 mg Q12H PRN PO CONSTIPATION; Start 12/16/16 at 09: 30 Zolpidem Tartrate 5 mg 5 mg QHS PRN PO SLEEP; Start 12/16/16 at 09:30 Sodium Chloride (1/2 NS) 1,000 ml @ 125 mls/hr Q8H IV Last administered on 02:52; Admin Dose 125 MLS/HR; Start 12/16/16 at 10:30 Ibuprofen (Motrin) 400 mg Q6H PRN PO PAIN OR TEMP ABOVE 38C; Start 12/16/16 at 11:00 SREEDHAR COOK NP Dec 19, 2016 07:14
--- NOTE | 2016-12-19 09:52 | CONS ---
Date/Time of Note Date/Time of Note DATE: 12/19/16 TIME: 09:51 Assessment/Plan Assessment/Plan Additional Assessment/Plan Assessment and recommendations; 1. Patient admitted with shortness of breath due to the discovery of large left upper lobe mass with left lower lobe atelectasis/infiltrate likely from underlying endobronchial lesion involving the left lower lobe. Continue current treatment. Patient scheduled for bronchoscopy today. The bronchoscopy findings are negative patient will need to have a CT-guided biopsy of the left upper lobe lung mass. Consultation Date/Type/Reason Admit Date/Time Dec 16, 2016 at 07:37 Initial Consult Date 12/17/16 Type of Consultation: Pulmonary Referring Provider: DARY PAZ 24 HR Interval Summary Free Text/Dictation Patient condition stable. Complains of chest congestion. Next General exam; elderly woman, awake alert currently in no distress. Exam/Review of Systems Vital Signs Vitals Vital Signs Date Time Temp Pulse Resp B/P Pulse Ox O2 Delivery O2 Flow Rate FiO2 12/19/16 08:33 98.7 87 18 128/87 98 12/16/16 07:00 Room Air Intake and Output 12/18/16 12/18/16 12/19/16 15:00 23:00 07:00 Intake Total 2100 ml 1250 ml Balance 2100 ml 1250 ml Exam HEENT exam; supple neck, no JVD. No lymphadenopathy. Midline trachea. No thyromegaly. Patient has multiple missing teeth. Chest exam; minimally decreased breath sounds left lower lobe. S1-S2 audible, no murmurs. Regular rhythm. Abdomen exam; soft, nontender. No organomegaly. Bowel sounds audible. Extremity exam; no peripheral edema. No clubbing. FOLLOW UP CLERK exam; no focal deficit. Results Result Diagram: 12/17/16 0455 12/18/16 0459 Medications Medications Current Medications Ondansetron HCl (Zofran Inj) 4 mg Q6H PRN IV NAUSEA AND/OR VOMITING; Start at 09:30 Acetaminophen (Tylenol Tab) 650 mg Q6H PRN PO PAIN LEVEL 1-3 OR FEVER Last administered on 12/16/16t 11:03; Admin Dose 650 MG; Start 12/16/16 at 09:30 Acetaminophen/ Hydrocodone Bitart ([place] (5/325)) 1 tab Q6H PRN PO MODERATE PAIN LEVEL 4-6; Start 12/16/16 at 09:30 Morphine Sulfate (morphine) 2 mg Q4H PRN IV SEVERE PAIN LEVEL 7-10; Start 12/16 at 09:30 Docusate Sodium (Colace) 100 mg Q12H PRN PO CONSTIPATION; Start 12/16/16 at 09: 30 Zolpidem Tartrate 5 mg 5 mg QHS PRN PO SLEEP; Start 12/16/16 at 09:30 Sodium Chloride (1/2 NS) 1,000 ml @ 125 mls/hr Q8H IV Last administered on 02:52; Admin Dose 125 MLS/HR; Start 12/16/16 at 10:30 Ibuprofen (Motrin) 400 mg Q6H PRN PO PAIN OR TEMP ABOVE 38C; Start 12/16/16 at 11:00 KARINA POLANCO Dec 19, 2016 09:52
--- NOTE | 2016-12-19 10:07 | CONS ---
Date/Time of Note Date/Time of Note DATE: 12/19/16 TIME: 10:04 Assessment/Plan Assessment/Plan Chief Complaint/Hosp Course 61 yo female with a left upper lobe apical mass as well numerous left lung nodules concerning for intrapulmonary metastasis. Pt's CT Abdomen demonstrates lesions concerning for liver metastasis. Bronchoscopy was not able to access the lesion. Pt will need CT guided lung biopsy. If the bronchoscopy is positive for malignancy, we will need to further evaluate the liver to see if there is in fact metastatic disease in the liver. I have reviewed the scan with the radiologist who states that the liver lesions are too small to biopsy at this time. CEA and CA19-9 are wnl although CA 125 is slightly elevated. -f/u results of CT guided bx -further recommendations will be based on above findings. Problems: Consultation Date/Type/Reason Admit Date/Time Dec 16, 2016 at 07:37 Initial Consult Date 12/18/16 Type of Consultation: Oncology Reason for Consultation lung mass Referring Provider: DARY PAZ 24 HR Interval Summary Free Text/Dictation pt had bronchoscopy today. chest pain and shortness of breath have improved Exam/Review of Systems Vital Signs Vitals Vital Signs Date Time Temp Pulse Resp B/P Pulse Ox O2 Delivery O2 Flow Rate FiO2 12/19/16 08:33 98.7 87 18 128/87 98 12/16/16 07:00 Room Air Intake and Output 12/18/16 12/18/16 12/19/16 15:00 23:00 07:00 Intake Total 2100 ml 1250 ml Balance 2100 ml 1250 ml Exam Constitutional: alert, oriented Psych: no complaints Head: normocephalic Eyes: nl conjunctiva ENMT: nl external ears & nose Neck: non-tender, supple Respiratory: clear to auscultation, normal air movement Cardiovascular: regular rate and rhythm Gastrointestinal: soft Musculoskeletal: nl extremities to inspection, nl gait and stance Results Result Diagram: 12/17/16 0455 12/18/16 0459 Medications Medications Current Medications Ondansetron HCl (Zofran Inj) 4 mg Q6H PRN IV NAUSEA AND/OR VOMITING; Start at 09:30 Acetaminophen (Tylenol Tab) 650 mg Q6H PRN PO PAIN LEVEL 1-3 OR FEVER Last administered on 12/16/16t 11:03; Admin Dose 650 MG; Start 12/16/16 at 09:30 Acetaminophen/ Hydrocodone Bitart ([place] (5/325)) 1 tab Q6H PRN PO MODERATE PAIN LEVEL 4-6; Start 12/16/16 at 09:30 Morphine Sulfate (morphine) 2 mg Q4H PRN IV SEVERE PAIN LEVEL 7-10; Start 12/16 at 09:30 Docusate Sodium (Colace) 100 mg Q12H PRN PO CONSTIPATION; Start 12/16/16 at 09: 30 Zolpidem Tartrate 5 mg 5 mg QHS PRN PO SLEEP; Start 12/16/16 at 09:30 Sodium Chloride (1/2 NS) 1,000 ml @ 125 mls/hr Q8H IV Last administered on t 02:52; Admin Dose 125 MLS/HR; Start 12/16/16 at 10:30 Ibuprofen (Motrin) 400 mg Q6H PRN PO PAIN OR TEMP ABOVE 38C; Start 12/16/16 at 11:00 MELONY TAVAREZ M.D. Dec 19, 2016 10:07
--- NOTE | 2016-12-19 10:37 | EN ---
Date/Time of Note Date/Time of Note DATE: 12/19/16 TIME: 10:35 Event Note Medicine Medicine Event Note This is a bronchoscopy report; Indications; large left upper lobe tumor, left lower lobe atelectasis with small pleural effusion. Bronchoscopy is to rule out endobronchial lesion. Informed consent was obtained from the patient. Patient was intubated by the anesthesiologist after induction of general anesthesia. Bronchoscope was introduced via the endotracheal tube. Distal trachea was normal, rex was sharp and well defined, scope was introduced into the right mainstem bronchus with evaluation of the right upper lobe, bronchus intermedius, superior segment of the lower lobe, middle lobe and lower lobes they were all normal. The scope was then introduced into the left mainstem bronchus with evaluation of the left upper lobe, lingula, superior segment of the lower lobe and lower lobes. They were all completely normal without any endobronchial pathology. The scope was then withdrawn. The patient tolerated the procedure well without any complications. Next Start time was 10 AM finish time was 10:07 AM. KARINA POLANCO Dec 19, 2016 10:37
[2016-12-19] MEDS: ACETAMINOPHEN 325 MG TAB PO PRN (15:46)
[2016-12-20 05:17] LABS: BASOPHIL # 0.1 10^3/ul (0.0-0.1); BASOPHILS % 0.7 % (0.0-2.0); EOSINOPHILS # 0.1 10^3/ul (0.0-0.5); HEMOGLOBIN 12.4 g/dl (12.0-16.0); LYMPHOCYTES # 2.8 10^3/ul (0.8-2.9); MEAN CORPUSCULAR HEMOGLOBIN 30.2 pg (29.0-33.0); MEAN CORPUSCULAR HGB CONC 33.5 g/dl (32.0-37.0); MEAN PLATELET VOLUME 9.6 fl (7.4-10.4); MONOCYTE # 0.6 10^3/ul (0.3-0.9); MONOCYTES % 9.2 % (0.0-11.0); NEUTROPHIL # 3.4 10^3/ul (1.6-7.5); NEUTROPHILS % 48.8 % (39.0-77.0); PLATELET COUNT 371 10^3/UL (140-415); RED BLOOD COUNT 4.11 10^6/ul (4.20-5.40); RED CELL DISTRIBUTION WIDTH 12.9 % (11.5-14.5)
[2016-12-20 05:27] LABS: INR 0.99; PROTIME 13.1 Sec (12.2-14.2)
[2016-12-20 05:28] LABS: PARTIAL THROMBOPLASTIN TIME 28.4 Sec (25.0-35.0)
[2016-12-20 05:35] LABS: BILIRUBIN,INDIRECT 0.4 mg/dl (0-1.1); BILIRUBIN,TOTAL 0.4 mg/dl (0.2-1.3); CALCIUM 9.6 mg/dl (8.4-10.2); CREATININE 0.63 mg/dl (0.44-1.00); POTASSIUM 4.7 mmol/L (3.5-5.1)
[2016-12-20 05:36] LABS: ALBUMIN 3.8 g/dl (3.3-4.9); ALBUMIN/GLOBULIN RATIO 1.31; TOTAL PROTEIN 6.7 g/dl (6.1-8.1)
[2016-12-20 05:42] LABS: PHOSPHORUS 3.9 mg/dl (2.5-4.9)
--- NOTE | 2016-12-20 07:25 | PN ---
Date/Time of Note Date/Time of Note DATE: 12/20/16 TIME: 07:23 Assessment/Plan VTE Prophylaxis VTE Prophylaxis Intervention: SCD's Lines/Catheters IV [facility]from [facility]): Peripheral IV Assessment/Plan Chief Complaint/Hosp Course 1. Spiculated nodule in the left lung apex measuring 3.42.7 cm. Possible neoplasm. The patient being followed by pulmonology and oncology. Status post bronchoscopy on 12/19/2016. Plan for a CT guided biopsy of the lesion. 2. Atypical chest pain. Most probably secondary to underlying left-sided spiculated lung mass. Largely resolved. 3. Fluids, electrolytes, and nutrition. Regular diet. 4. DVT prophylaxis with bilateral sequential compression devices. 5. Gastrointestinal prophylaxis. Not indicated. 6. Plan. Continue current management. Await CT-guided needle biopsy Case discussed with Dr. Bolton. Problems: Subjective 24 Hr Interval Summary Free Text/Dictation Vital signs stable. Exam/Review of Systems Vital Signs Vitals Vital Signs Date Time Temp Pulse Resp B/P Pulse Ox O2 Delivery O2 Flow Rate FiO2 12/19/16 16:13 98.6 95 18 111/54 95 12/19/16 14:10 Room Air 12/19/16 10:18 8.0 Intake and Output 12/19/16 12/19/16 12/20/16 15:00 23:00 07:00 Intake Total 350 ml 970 ml 1065 ml Output Total 0 ml Balance 350 ml 970 ml 1065 ml Exam General: Adequately build 61 year-old female lying in bed in no apparent distress. HEENT: Normocephalic, atraumatic. Eyes: Anicteric sclerae, conjunctivae clear. ENT: Nasal septum midline, oral mucosa moist. Neck supple, no JVD noticed. Respiratory: Bilaterally clear breath sounds. No use of accessory muscles of respiration. No adventitious breath sounds. Cardiovascular: S1, S2 heard. No murmurs or gallops. Abdomen: Soft, nontender, and nondistended. Bowel sounds positive in all 4 quadrants. Genitourinary: Deferred. Extremities: No cyanosis, no clubbing, no edema. Peripheral pulses palpable. Neurologic: Cranial nerves II through XII grossly intact. The patient is awake, alert, and oriented. Skin: Normal skin turgor. No skin rashes. Results Result Diagram: 12/20/16 0439 12/20/16 0440 Results 24 hrs Laboratory Tests Test 12/20/16 04:39 12/20/16 04:40 White Blood Count 7.0 Red Blood Count 4.11 L Hemoglobin 12.4 Hematocrit 37.0 Mean Corpuscular Volume 90.0 Mean Corpuscular Hemoglobin 30.2 Mean Corpuscular Hemoglobin Concent 33.5 Red Cell Distribution Width 12.9 Platelet Count 371 Mean Platelet Volume 9.6 Neutrophils % 48.8 Lymphocytes % 40.0 Monocytes % 9.2 Eosinophils % 1.0 Basophils % 0.7 Nucleated Red Blood Cells % 0.0 Neutrophils # 3.4 Lymphocytes # 2.8 Monocytes # 0.6 Eosinophils # 0.1 Basophils # 0.1 Nucleated Red Blood Cells # 0.0 Prothrombin Time 13.1 Prothrombin Time Ratio 1.0 INR International Normalized Ratio 0.99 Activated Partial Thromboplast Time 28.4 Sodium Level 143 Potassium Level 4.7 Chloride Level 102 Carbon Dioxide Level 30 Anion Gap 16 Blood Urea Nitrogen 13 Creatinine 0.63 Glucose Level 97 Calcium Level 9.6 Phosphorus Level 3.9 Magnesium Level 2.0 Total Bilirubin 0.4 Direct Bilirubin 0.00 Indirect Bilirubin 0.4 Aspartate Amino Transf (AST/SGOT) 20 Alanine Aminotransferase (ALT/SGPT) 29 Alkaline Phosphatase 76 Total Protein 6.7 Albumin 3.8 Globulin 2.90 Albumin/Globulin Ratio 1.31 Medications Medications Current Medications Ondansetron HCl (Zofran Inj) 4 mg Q6H PRN IV NAUSEA AND/OR VOMITING; Start at 09:30 Acetaminophen (Tylenol Tab) 650 mg Q6H PRN PO PAIN LEVEL 1-3 OR FEVER Last administered on 12/19/16t 15:46; Admin Dose 650 MG; Start 12/16/16 at 09:30 Acetaminophen/ Hydrocodone Bitart ([place] (5/325)) 1 tab Q6H PRN PO MODERATE PAIN LEVEL 4-6; Start 12/16/16 at 09:30 Morphine Sulfate (morphine) 2 mg Q4H PRN IV SEVERE PAIN LEVEL 7-10; Start 12/16 at 09:30 Docusate Sodium (Colace) 100 mg Q12H PRN PO CONSTIPATION; Start 12/16/16 at 09: 30 Zolpidem Tartrate 5 mg 5 mg QHS PRN PO SLEEP; Start 12/16/16 at 09:30 Sodium Chloride (1/2 NS) 1,000 ml @ 125 mls/hr Q8H IV Last administered on t 23:46; Admin Dose 125 MLS/HR; Start 12/16/16 at 10:30 Ibuprofen (Motrin) 400 mg Q6H PRN PO PAIN OR TEMP ABOVE 38C; Start 12/16/16 at 11:00 SREEDHAR COOK NP Dec 20, 2016 07:25
[2016-12-20 07:53] VITALS: BP 111/68; RESP 16
--- NOTE | 2016-12-20 10:34 | RADRPT ---
PROCEDURE: CT guided biopsy of left lung mass. CLINICAL INDICATION: Left lung apical mass. TECHNIQUE: Prior to the procedure, informed consent was obtained. Risks including bleeding, infec tion, and pneumothorax were explained to the patient. The patient understood was willing to proceed . A procedural pause was performed. The patient's name, date of , and procedure to be perform ed were verified. Using local anesthetic, sterile technique, and CT guidance, a 20-gauge automated core biopsy needle was used to biopsy the mass in the left lung apex. Multiple passes were made. Adequate tissue was obtained according to the pathologist present during the procedure. The needle was removed. A post biopsy scan was performed. The patient tolerated the procedure well. One or more of the following dose reduction techniques were used: Automated exposure control, adjustment of the mA and/or kV acc ording to patient size, use of iterative reconstruction technique. COMPARISON: No prior study is available for comparison. FINDINGS: Images with the needle in place demonstrate the needle at the posterior margin of the lesion in ques tion. Post biopsy images demonstrate no immediate complication. IMPRESSION: 1. Satisfactory CT guided biopsy of the left apical lung mass. RPTAT: QQ .Geremias Kc MD, Date Time Electronically viewed and signed by .Geremias Kc MD, MD on 12/20/2016 10:34 .R/
[2016-12-20 11:11] VITALS: BP 113/64; PULSE 84; RESP 16
[2016-12-20] MEDS: SOD CHLORIDE 0.45% 1,000 ML IV SCH (11:17)
[2016-12-20 11:40] VITALS: BP 115/63; PULSE 74; RESP 18
[2016-12-20] MEDS ORDERED: PROPOFOL 20 ML ONE (18:02)
[2016-12-20] MEDS ORDERED: LIDOCAINE 1% (STERILE-PAK) 30 ML INJ ONE (18:02)
[2016-12-20] MEDS ORDERED: SUCCINYLCHOLINE CHLORIDE 100 MG/5 ML SYG IV ONE (18:02)
[2016-12-20] MEDS ORDERED: FENTAnyl 50 MCG/ML VIAL ONE ×2 (18:02→18:03)
[2016-12-20] MEDS ORDERED: ROCURONIUM 50 MG INJ ONE (18:02)
[2016-12-20] MEDS ORDERED: ONDANSETRON 4 MG INJ ONE (18:02)
[2016-12-20] MEDS ORDERED: LIDOCAINE 1% (MDV) 20 ML INJ ONE (18:03)
[2016-12-20] MEDS ORDERED: SOD CHLORIDE 0.9% 500 ML ONE (18:03)
[2016-12-20] MEDS ORDERED: MIDAZOLAM 1 MG/ML 2 ML INJ ONE (18:03)
[2016-12-20 20:00] VITALS: BP 121/58; RESP 18
[2016-12-21 08:21] VITALS: BP 116/64; RESP 16
--- NOTE | 2016-12-21 09:26 | PN ---
Date/Time of Note Date/Time of Note DATE: 12/21/16 TIME: 09:25 Assessment/Plan VTE Prophylaxis VTE Prophylaxis Intervention: SCD's Lines/Catheters IV [facility] Peripheral IV Assessment/Plan Chief Complaint/Hosp Course 1. Spiculated nodule in the left lung apex measuring 3.42.7 cm. Possible neoplasm. The patient being followed by pulmonology and oncology. Status post bronchoscopy on 12/19/2016. Status post CT guided biopsy of the lesion on 2016. Pending pathology. 2. Atypical chest pain. Most probably secondary to underlying left-sided spiculated lung mass. Largely resolved. 3. Fluids, electrolytes, and nutrition. Regular diet. 4. DVT prophylaxis with bilateral sequential compression devices. 5. Gastrointestinal prophylaxis. Not indicated. 6. Plan. Continue current management. Await biopsy results. Start as needed Cepacol. Chest x-ray. Case discussed with Dr. Bolton. Plan of care was explained to the patient's family, who was at the bedside. Problems: Subjective 24 Hr Interval Summary Free Text/Dictation Vital signs stable. Complains of a sore throat and a urge to cough Exam/Review of Systems Vital Signs Vitals Vital Signs Date Time Temp Pulse Resp B/P Pulse Ox O2 Delivery O2 Flow Rate FiO2 12/21/16 08:21 97.9 96 16 116/64 95 12/20/16 11:40 Room Air 12/20/16 09:35 2 Intake and Output 12/20/16 12/20/16 12/21/16 15:00 23:00 07:00 Intake Total 650 ml 850 ml 870 ml Balance 650 ml 850 ml 870 ml Exam General: Adequately build 61 year-old female lying in bed in no apparent distress. HEENT: Normocephalic, atraumatic. Eyes: Anicteric sclerae, conjunctivae clear. ENT: Nasal septum midline, oral mucosa moist. Neck supple, no JVD noticed. Respiratory: Bilaterally clear breath sounds. No use of accessory muscles of respiration. No adventitious breath sounds. Cardiovascular: S1, S2 heard. No murmurs or gallops. Abdomen: Soft, nontender, and nondistended. Bowel sounds positive in all 4 quadrants. Genitourinary: Deferred. Extremities: No cyanosis, no clubbing, no edema. Peripheral pulses palpable. Neurologic: Cranial nerves II through XII grossly intact. The patient is awake, alert, and oriented. Skin: Normal skin turgor. No skin rashes. Results Result Diagram: 12/20/16 0439 12/20/16 0440 Medications Medications Current Medications Ondansetron HCl (Zofran Inj) 4 mg Q6H PRN IV NAUSEA AND/OR VOMITING; Start at 09:30 Acetaminophen (Tylenol Tab) 650 mg Q6H PRN PO PAIN LEVEL 1-3 OR FEVER Last administered on 12/19/16t 15:46; Admin Dose 650 MG; Start 12/16/16 at 09:30 Acetaminophen/ Hydrocodone Bitart ([place] (5/325)) 1 tab Q6H PRN PO MODERATE PAIN LEVEL 4-6; Start 12/16/16 at 09:30 Morphine Sulfate (morphine) 2 mg Q4H PRN IV SEVERE PAIN LEVEL 7-10; Start 12/16 at 09:30 Docusate Sodium (Colace) 100 mg Q12H PRN PO CONSTIPATION; Start 12/16/16 at 09: 30 Zolpidem Tartrate ([place]) 5 mg QHS PRN PO SLEEP; Start 12/16/16 at 09:30 Ibuprofen (Motrin) 400 mg Q6H PRN PO PAIN OR TEMP ABOVE 38C; Start 12/16/16 at 11:00 SREEDHAR COOK NP Dec 21, 2016 09:26
--- NOTE | 2016-12-21 09:40 | CONS ---
Date/Time of Note Date/Time of Note DATE: 12/21/16 TIME: 09:37 Assessment/Plan Assessment/Plan Chief Complaint/Hosp Course 61 yo female with a left upper lobe apical mass as well numerous left lung nodules concerning for intrapulmonary metastasis. Pt is now confirmed to have to have poorly differentiated non small cell ca -pathology to send tissue for immunohistochemistry as well as molecular markers including PDl-1, EGFR and ALK -pt will need out patient PET CT to fully evaluate extent of disease -pt may f/u in our clinic in 1 week. Problems: Consultation Date/Type/Reason Admit Date/Time Dec 16, 2016 at 07:37 Initial Consult Date 12/18/16 Type of Consultation: Oncology Reason for Consultation lung nodule Referring Provider: DARY PAZ 24 HR Interval Summary Free Text/Dictation pt has been confirmed to have poorly differentiated non small cell cancer, although immunostains are pending. pt's SOB is stable. family is very tearful with the new diagnosis Exam/Review of Systems Vital Signs Vitals Vital Signs Date Time Temp Pulse Resp B/P Pulse Ox O2 Delivery O2 Flow Rate FiO2 12/21/16 08:21 97.9 96 16 116/64 95 12/20/16 11:40 Room Air 12/20/16 09:35 2 Intake and Output 12/20/16 12/20/16 12/21/16 15:00 23:00 07:00 Intake Total 650 ml 850 ml 870 ml Balance 650 ml 850 ml 870 ml Exam Constitutional: alert, oriented Psych: no complaints Head: normocephalic Eyes: nl conjunctiva ENMT: nl external ears & nose Neck: non-tender, supple Respiratory: clear to auscultation Cardiovascular: regular rate and rhythm Gastrointestinal: soft Musculoskeletal: nl extremities to inspection, nl gait and stance Extremities: normal pulses Results Result Diagram: 12/20/16 0439 12/20/16 0440 Medications Medications Current Medications Ondansetron HCl (Zofran Inj) 4 mg Q6H PRN IV NAUSEA AND/OR VOMITING; Start at 09:30 Acetaminophen (Tylenol Tab) 650 mg Q6H PRN PO PAIN LEVEL 1-3 OR FEVER Last administered on 12/19/16t 15:46; Admin Dose 650 MG; Start 12/16/16 at 09:30 Acetaminophen/ Hydrocodone Bitart ([place] (5/325)) 1 tab Q6H PRN PO MODERATE PAIN LEVEL 4-6; Start 12/16/16 at 09:30 Morphine Sulfate (morphine) 2 mg Q4H PRN IV SEVERE PAIN LEVEL 7-10; Start 12/16 at 09:30 Docusate Sodium (Colace) 100 mg Q12H PRN PO CONSTIPATION; Start 12/16/16 at 09: 30 Zolpidem Tartrate (Ambien) 5 mg QHS PRN PO SLEEP; Start 12/16/16 at 09:30 Ibuprofen (Motrin) 400 mg Q6H PRN PO PAIN OR TEMP ABOVE 38C; Start 12/16/16 at 11:00 MELONY TAVAREZ M.D. Dec 21, 2016 09:40
[2016-12-21] MEDS ORDERED: CEPASTAT LOZENGE MT PRN (10:00)
--- NOTE | 2016-12-21 13:23 | RADRPT ---
PROCEDURE: XR Chest. CLINICAL INDICATION: R/O infiltrates TECHNIQUE: Single frontal view of the chest was obtained COMPARISON: CT chest 12/16/2016 FINDINGS: There is a large spiculated mass in the left upper lobe and several smaller nodules/masses scattered in the left lung, better demonstrated on recent CT chest of 12/16/2016. There is a small to moderate left pleural effusion, likely not significant change compared to prior CT chest. Underlying atelectasis and / or consolidation cannot be completely excluded. The cardiac silhouette is within normal limits in size. There is no significant pulmonary vascular congestion No pneumothorax or significant right pleural effusion is seen. There are degenerative changes of the visualized spine. IMPRESSION: 1. Left apical large spiculated mass and several additional left pulmonary nodules/masses, better de monstrated on recent CT chest of 12/16/2016. 2. Small moderate left pleural effusion, likely stable. Underlying atelectasis and / or consolidat ion cannot be excluded. RPTAT: PP Physician Meg Date Time Electronically viewed and signed by Miguel Angel Lopez Physician on 12/21/2016 13:22 MARY/
[2016-12-21 15:11] VITALS: BP 115/57; RESP 16
--- NOTE | 2016-12-21 18:06 | PDOCDIS ---
Discharge Instructions DIAGNOSIS Discharge Diagnosis Lung cancer CONDITION Patient Condition: Stable HOME CARE INSTRUCTIONS: Diet Instructions: RegularSpecial Diet: REGULAR ACTIVITY: Activity Restrictions: Slowly Increase Activity Rest between Activity Avoid heavy lifting FOLLOW UP/APPOINTMENTS Follow-up Plan Yun Ramirez MD Specialty Oncology, Hematology Office Address [address] [place] [id number] Office OTHER ORDERS: Other Orders: 1. Take a regular diet as tolerated. 2. Resume activities as tolerated 3. Follow-up with as instructed. SREEDHAR COOK NP Dec 21, 2016 18:06
--- NOTE | 2016-12-21 18:40 | DS ---
Date/Time of Note Date/Time of Note DATE: 12/21/16 TIME: 18:38 Discharge Summary Admission/Discharge Info Admit Date/Time Dec 16, 2016 at 07:37 Discharge Date/Time Discharge Diagnosis 1. Poorly differentiated non-small cell carcinoma. Newly diagnosed. Patient Condition: Stable Consults 1. Colt Cristina MD, Pulmonology. 2. Yun Ramirez MD, Oncology. Procedures CT-Guided Needle Biopsy IMPRESSION: 1. Satisfactory CT guided biopsy of the left apical lung mass. Chest CT IMPRESSION: 1. Spiculated nodule in the left lung apex measuring 3.4 x 2.7 cm consistent with neoplasm. Multiple smaller nodules throughout the left lung and a single small nodule in the right lung. These are also suspicious for neoplasm. 2. Atherosclerosis. 3. Several small low attenuation nodules in the liver which may be benign or malignant. The largest measures 0.9 cm in maximal dimension. 4. Gallstones in the gallbladder. No evidence of cholecystitis. 5. Diverticulosis of the descending colon and sigmoid colon. No evidence of diverticulitis. 6. Mild degenerative changes of the spine. Bronchoscopy Indications; large left upper lobe tumor, left lower lobe atelectasis with small pleural effusion. Bronchoscopy is to rule out endobronchial lesion. Informed consent was obtained from the patient. Patient was intubated by the anesthesiologist after induction of general anesthesia. Bronchoscope was introduced via the endotracheal tube. Distal trachea was normal, rex was sharp and well defined, scope was introduced into the right mainstem bronchus with evaluation of the right upper lobe, bronchus intermedius, superior segment of the lower lobe, middle lobe and lower lobes they were all normal. The scope was then introduced into the left mainstem bronchus with evaluation of the left upper lobe, lingula, superior segment of the lower lobe and lower lobes. They were all completely normal without any endobronchial pathology. The scope was then withdrawn. The patient tolerated the procedure well without any complications. Start time was 10 AM finish time was 10:07 AM. Hx of Present Illness Patient is a 61-year-old female with no medical history. Patient presents with left-sided chest pain for 2 months as well as 18 pound weight loss over the past 3 months. Patient states that she has been feeling somewhat depressed over the past month. Patient states that she receives routine monitoring for malignancy as she has a strong family history for breast cancer and uterine cancer. Patient states that she had colonoscopy a year ago that was negative as well as Pap smear and mammogram a year ago that were also normal. Patient presented to an outside hospital where she had a CT chest that showed a mass in the left chest concerning for malignancy, patient has no history of tobacco abuse and no history of exposure to industrial chemicals. Patient states that the pain is in her left chest as well as her left axillary region extending into her left back. Patient denies any cardiac history denies any nausea vomiting or diarrhea. Hospital Course The patient was admitted to inpatient medical surgical floor. Pulmonology consult was obtained. The patient's tumor markers were negative other than the carbohydrate antigen 125. The patient underwent a bronchoscopy on 12/19/2016 that showed normal findings without any endobronchial pathology. Therefore, the patient had a CT-guided needle biopsy of the left lung apex spiculated nodule on 12/20/2016. Pathology from the CT-guided biopsy showed non-small cell carcinoma of the lung. Pathology Department will send tissue for immunohistochemistry as well as molecular markers including PDl-1, EGFR and ALK. The patient will need out patient PET CT to fully evaluate the extent of disease. Case management consult was ordered for setting up for a PET CT as outpatient with the patient's insurance. The patient's presenting symptoms of chest pain and weight loss was confirmed to be secondary to underlying malignancy. The patient had a stable but prolonged hospital course because of the need for multiple procedures and the waiting time for pathology results to come back. The patient was cleared by consultants to be discharged home. Discharge Instructions 1. Take a regular diet as tolerated. 2. Resume activities as tolerated 3. Follow-up with as instructed [in 1 week). 4. Needs out patient PET CT to fully evaluate extent of disease. Case management consult was ordered for outpatient PET CT scan. The patient verbalized understanding of her discharge instructions. At this time I would like to thank all the consultants for seeing the patient, doing the necessary procedures, and providing clinic recommendations. Case discussed with Dr. Bolton. Follow-up Plan Follow-up with outpatient oncology [Dr. Ramirez] as scheduled. Primary Care Provider Care Physician No Primary Time spent on discharge: > 30 minutes SREEDHAR COOK NP Dec 21, 2016 18:40
== END 2016-12-21 19:30 | disposition home or self-care (01) | DRG 182 ==
LOC: MS1 07:37
PROVIDERS: ADMIT Internal Medicine; ATTEND Internal Medicine
PROC: 0BJ08ZZ Inspection of Tracheobronchial Tree, Via Natural or Artificial Opening Endoscopic (ICD-10-PCS; 2016-12-19)
PROC: 0BBL3ZX Excision of Left Lung, Percutaneous Approach, Diagnostic (ICD-10-PCS; principal; 2016-12-20)
DX: C34.12 Malignant neoplasm of upper lobe, left bronchus or lung (principal); K76.9 Liver disease, unspecified; R63.4 Abnormal weight loss; Z68.21 Body mass index [BMI] 21.0-21.9, adult; Z80.3 Family history of malignant neoplasm of breast; Z80.8 Family history of malignant neoplasm of other organs or systems
CPT/HCPCS: 71010; 71260; 74177; 77012; 80048; 80053; 80061; 82105; 82378; 83036; 83735; 84100; 84436; 84479; 84484; 85025; 85610; 85730; 86300; 86301; 86304; 87081; 88307; 88313; J2250; J2405; J3010; J7040; J7999; Q9967

== ENCOUNTER 2017-02-20 10:28 | Inpatient (IN) | payer OTHER ==
[~2017-02-20] VITALS: Ht 157.5 cm; Wt 54.5 kg
[2017-02-20 10:33] VITALS: Ht 157.5 cm; Wt 54.5 kg
[2017-02-20] MEDS ORDERED: SOD CHLORIDE 0.9% 1,000 ML IV STA (12:41)
[2017-02-20 13:05] LABS: BASOPHIL # 0.1 10^3/ul (0.0-0.1); BASOPHILS % 0.8 % (0.0-2.0); EOSINOPHILS # 0.1 10^3/ul (0.0-0.5); EOSINOPHILS % 1.8 % (0.0-7.0); HEMATOCRIT 39.9 % (37.0-47.0); HEMOGLOBIN 13.7 g/dl (12.0-16.0); LYMPHOCYTES # 1.9 10^3/ul (0.8-2.9); MEAN CORPUSCULAR HEMOGLOBIN 30.5 pg (29.0-33.0); MEAN CORPUSCULAR HGB CONC 34.3 g/dl (32.0-37.0); MEAN CORPUSCULAR VOLUME 88.9 fl (82.0-101.0); MEAN PLATELET VOLUME 9.1 fl (7.4-10.4); MONOCYTE # 0.9 10^3/ul (0.3-0.9); MONOCYTES % 12.3 % (0.0-11.0); NEUTROPHIL # 4.4 10^3/ul (1.6-7.5); NEUTROPHILS % 59.8 % (39.0-77.0); PLATELET COUNT 355 10^3/UL (140-415); RED BLOOD COUNT 4.49 10^6/ul (4.20-5.40); RED CELL DISTRIBUTION WIDTH 13.8 % (11.5-14.5); WHITE BLOOD COUNT 7.4 10^3/ul (4.8-10.8)
[2017-02-20] MEDS ORDERED: AMLO2.5T78 PO (13:17)
[2017-02-20] MEDS ORDERED: ASPI81TA3 PO (13:18)
[2017-02-20] MEDS ORDERED: LEVO75TA5 PO (13:21)
[2017-02-20 13:22] LABS: INR 0.98
[2017-02-20] MEDS ORDERED: MULT-542 PO (13:22)
[2017-02-20] MEDS ORDERED: MTF1000T PO (13:22)
[2017-02-20 13:23] LABS: PARTIAL THROMBOPLASTIN TIME 26.9 Sec (25.0-35.0)
[2017-02-20] MEDS ORDERED: OLAN5TAB5 PO (13:23)
[2017-02-20] MEDS ORDERED: RIS1 PO (13:23)
[2017-02-20] MEDS ORDERED: SIMV40TA2 PO (13:24)
--- NOTE | 2017-02-20 13:25 | RADRPT ---
PROCEDURE: Chest x-ray CLINICAL INDICATION: Chest pain TECHNIQUE: Chest single view COMPARISON: 12/21/2016 FINDINGS: The heart is normal in size. The pulmonary vessels are normal in caliber. There is a spiculated nod ular mass in the left lung apex which is decreased in size from previous examination. Previously not ed left lower lung consolidation and left pleural effusion is nearly completely resolved with trace effusion remaining. Right lung is grossly clear. Right costophrenic angle sharp. IMPRESSION: 1. Interval decrease in size of spiculated mass in the left lung apex. 2. Near complete resolution of left lower lung consolidation and left pleural effusion. Small effus ion remains. 3. No new infiltrates RPTAT: HH .Usama Galvan MD, MD Date Time Electronically viewed and signed by .Usama Galvan MD, on 02/20/2017 13:25 .W/
[2017-02-20 13:26] LABS: ALANINE AMINOTRANSFERASE 870 IU/L (13-69); ALBUMIN/GLOBULIN RATIO 1.11; ALKALINE PHOSPHATASE 131 IU/L (42-121); ANION GAP 11 (8-16); ASPARTATE AMINO TRANSFERASE 531 IU/L (15-46); BILIRUBIN,INDIRECT 0.9 mg/dl (0-1.1); BILIRUBIN,TOTAL 0.9 mg/dl (0.2-1.3); BLOOD UREA NITROGEN 12 mg/dl (7-20); CALCIUM 9.4 mg/dl (8.4-10.2); CARBON DIOXIDE 31 mmol/L (21-31); CHLORIDE 101 mmol/L (97-110); CREATININE 0.61 mg/dl (0.44-1.00); GLUCOSE 89 mg/dl (70-220); POTASSIUM 4.3 mmol/L (3.5-5.1); SODIUM 139 mmol/L (135-144); TOTAL PROTEIN 7.6 g/dl (6.1-8.1)
[2017-02-20] MEDS ORDERED: OLAN10TA7 PO (13:27)
[2017-02-20] MEDS ORDERED: ERLO150T PO (13:28)
[2017-02-20 13:45] LABS: TROPONIN-I < 0.012 ng/ml (0.00-0.12)
[2017-02-20 15:33] VITALS: PULSE 93
--- NOTE | 2017-02-20 16:22 | ERA ---
ER Documentation Chief Complaint Date/Time DATE: 02/20/17 TIME: 16:20 Chief Complaint NAUSEA, WEAKNESS, AP X 2 WEEKS, ON ORAL CHEMO DUE LUNG CA HPI This is a 61-year-old female with a history of lung cancer with metastasis sent by her oncologist Dr. ferrell, patient is complaining of nausea and generalized weakness and anorexia after starting chemotherapy. The patient has started chemotherapy a few days ago at follow-up labs which demonstrated elevated liver function tests which are a side effect of the chemotherapy. Patient was sent for admission to the hospital for IV fluids and to be followed by her oncologist., Especially the resolution of elevated liver function tests ROS All systems reviewed and are negative except as per history of present illness. Medications Home Meds Reported Medications Erlotinib* (Tarceva*) 150 Mg Tablet, 150 MG PO DAILY, #30 02/20/17 Discontinued Reported Medications Olanzapine* (Zyprexa*) 10 Mg Tablet, 10 MG PO QHS, #30 TAB 02/20/17 Simvastatin* (Zocor*) 40 Mg Tablet, 40 MG PO QHS, #30 TAB 02/20/17 Risperidone* (Risperdal*) 1 Mg Tablet, 1 MG PO DAILY, TAB 02/20/17 Olanzapine* (Zyprexa*) 5 Mg Tablet, 5 MG PO DAILY, #30 TAB 02/20/17 Multivitamin* (Daily Value*) 1 Each Tablet, 1 TAB PO DAILY, TAB 02/20/17 Metformin* (Glucophage*) 1,000 Mg Tablet, 1000 MG PO BID, #60 TAB 02/20/17 Levothyroxine Sodium* (Levothyroxine Sodium*) 75 Mcg Tablet, 75 MCG PO BEFORE BREAKFAST, #30 TAB 02/20/17 Aspirin* (Aspirin* Chew) 81 Mg Tab.chew, 81 MG PO DAILY, TAB.CHEW 02/20/17 Amlodipine Besylate* (Amlodipine Besylate*) 2.5 Mg Tablet, 2.5 MG PO DAILY, #30 TAB 02/20/17 Allergies Allergies: Coded Allergies: Penicillins (Verified Allergy, Severe, 02/20/17) PT WAS ADMINISTERED PCN LONG AGO AND SHE FAINTED. ACTUAL REACTION UNKNOWN BUT APPEARS SEVERE PMhx/Soc History of Surgery: No Anesthesia Reaction: No Hx Neurological Disorder: No Hx Respiratory Disorders: Yes (LUNG CA ) Hx Cardiac Disorders: No Hx Psychiatric Problems: No Hx Miscellaneous Medical Probl: Yes Hx Alcohol Use: No Hx Substance Use: No Hx Tobacco Use: No Smoking Status: Current every day smoker FmHx Family History: No coronary disease Physical Exam Vitals Vital Signs Date Time Temp Pulse Resp B/P Pulse Ox O2 Delivery O2 Flow Rate FiO2 02/20/17 15:33 93 20 123/77 97 Room Air 02/20/17 14:53 100 16 134/80 99 Room Air 02/20/17 10:33 97.9 84 18 134/84 99 Physical Exam Const: Well-developed, well-nourished Head: Atraumatic, normocephalic Eyes: Normal Conjunctiva, PERRLA, EOMI, normal sclera, no nystagmus ENT: Normal External Ears, Nose and Mouth, moist mucus membranes. Neck: Full range of motion. No meningismus, no lymphadenopathy. Resp: Clear to auscultation bilaterally, no wheezing, rhonchi, rales Cardio: Regular rate and rhythm, no murmurs, S1 S2 present Abd: Soft, slightly tender right upper quadrant non distended. Normal bowel sounds, no guarding or rebound, no pulsitile abdominal masses or bruits Skin: No petechiae or rashes, no ecchymosis , no maculopapular rash Back: No midline or flank tenderness Ext: No cyanosis, or edema, FROM x 4, normal inspection, neurovascularly intact x 4 Neur: Awake and alert, STR 5/5 x 4, sensation intact x 4, no focal findings, cerebellum intact Psych: Normal Mood and Affect Result Diagram: 02/20/17 1255 02/20/17 1255 Results 24 hrs Laboratory Tests Test 02/20/17 12:55 White Blood Count 7.410^3/ul Red Blood Count 4.4910^6/ul Hemoglobin 13.7g/dl Hematocrit 39.9% Mean Corpuscular Volume 88.9fl Mean Corpuscular Hemoglobin 30.5pg Mean Corpuscular Hemoglobin Concent 34.3g/dl Red Cell Distribution Width 13.8% Platelet Count 56604^3/UL Mean Platelet Volume 9.1fl Neutrophils % 59.8% Lymphocytes % 25.0% Monocytes % 12.3% Eosinophils % 1.8% Basophils % 0.8% Nucleated Red Blood Cells % 0.0/100WBC Neutrophils # 4.410^3/ul Lymphocytes # 1.910^3/ul Monocytes # 0.910^3/ul Eosinophils # 0.110^3/ul Basophils # 0.110^3/ul Nucleated Red Blood Cells # 0.010^3/ul Prothrombin Time 13.0Sec Prothrombin Time Ratio 1.0 INR International Normalized Ratio 0.98 Activated Partial Thromboplast Time 26.9Sec Sodium Level 139mmol/L Potassium Level 4.3mmol/L Chloride Level 101mmol/L Carbon Dioxide Level 31mmol/L Anion Gap 11 Blood Urea Nitrogen 12mg/dl Creatinine 0.61mg/dl Glucose Level 89mg/dl Calcium Level 9.4mg/dl Total Bilirubin 0.9mg/dl Direct Bilirubin 0.00mg/dl Indirect Bilirubin 0.9mg/dl Aspartate Amino Transf (AST/SGOT) 531IU/L Alanine Aminotransferase (ALT/SGPT) 870IU/L Alkaline Phosphatase 131IU/L Troponin I < 0.012ng/ml Total Protein 7.6g/dl Albumin 4.0g/dl Globulin 3.60g/dl Albumin/Globulin Ratio 1.11 Lipase 82U/L Current Medications Medications (Trade) Dose Ordered Sig/Maddy Route PRN Reason Start Time Stop Time Status Last Admin Dose Admin Sodium Chloride (NS) 1,000 ml @ 1,000 mls/hr Q1H STAT IV 02/20/17 12:41 02/20/17 13:40 DC 02/20/17 13:21 Procedures/MDM PROCEDURE: Chest x-ray CLINICAL INDICATION: Chest pain TECHNIQUE: Chest single view COMPARISON: 12/21/2016 FINDINGS: The heart is normal in size. The pulmonary vessels are normal in caliber. There is a spiculated nodular mass in the left lung apex which is decreased in size from previous examination. Previously noted left lower lung consolidation and left pleural effusion is nearly completely resolved with trace effusion remaining. Right lung is grossly clear. Right costophrenic angle sharp. IMPRESSION: 1. Interval decrease in size of spiculated mass in the left lung apex. 2. Near complete resolution of left lower lung consolidation and left pleural effusion. Small effusion remains. 3. No new infiltrates RPTAT: .Usama Galvan MD, MD Date Time Electronically viewed and signed by .Usama Galvan MD, on 02/20/2017 13:25 .W/ CC: RAVINDRA MARINELLI DO Patient received some IV fluids. The patient's doctor did come and see her in the ER. We will admit to panel for IV fluids observation and follow with oncology Departure Diagnosis: Primary Impression: Lung cancer Qualified Code: C34.92 - Malignant neoplasm of left lung, unspecified part of lung Additional Impressions: Elevated liver function tests Generalized weakness Condition: Stable RAVINDRA MARINELLI DO Feb 20, 2017 16:22
[2017-02-20] MEDS ORDERED: SOD CHLORIDE 0.9% 1,000 ML IV SCH (16:26)
[2017-02-20] MEDS ORDERED: ACETAMINOPHEN 325 MG TAB PO PRN (16:30)
[2017-02-20] MEDS ORDERED: ONDANSETRON 4 MG INJ IV PRN ×2 (16:30→20:00)
--- NOTE | 2017-02-20 16:39 | CONS ---
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 -given the EGFR positivity, pt was Tarceva at 150mg q day. this was started at 2016 -pt now presents with acute elevation of her LFTs; -will stop tarceva for now -once her LFTs' have normalized will likely need to start Afatinib at a dose reduced dose of 30mg q day #Increased LFTs -tarceva on hold -abdominal ultrasound ordered -acute hep panel ordered #R femur pain secondary to bone involvement -this has largely improved since starting therapy. -no need for XRT at this time -pt to start Zometa as an out patient - Problems: Consultation Date/Type/Reason Admit Date/Time 02/20/17 Date of Consultation: Feb 20, 2017 Type of Consultation: Oncology Reason for Consultation metastatic lung cancer, dizziness, hepatitis Referring Provider: RAVINDRA MARINELLI DO Hx of Present Illness 61 yo female seen in November 2016 who was admitted for SOB and cough. Pt was found with a left apical mass measuring 3.4 cm as well as numerous left lung nodules. Pt also complains of RLE pain for 3 weeks. Pt had a bx done at [facility] on 12/20/16 which revealed adenocarcinoma of the lung EGFR positive also with PDL1 expressed at 2%. Pt has a PET CT done as an out patient that confirms disease in the left upper lung (2.7cm mass), numerous additional foci in the left lung in the left upper lung, left major fissure and left lower lung. Also seen in a moderate size left pleural effusion. Also seen is a focus of increased metabolic activity in the right proximal femur SUV 4.6, corresponding to her area of pain. patient started Tarceva in November of 2016 For the last 2 weeks patient has c/o dizziness, light headedness and Right upper quadrant pain. Out patient labs revealed markedly elevated LFTs deemed secondary to the Tarceva which was held yesterday. Due to her worsening symptoms patient presented to the ER and will be admitted Constitutional: other (depressed), poor po Eyes: no complaints ENT: no complaints Respiratory: no complaints Cardiovascular: lightheadedness, palpitations Gastrointestinal: no complaints Genitourinary: no complaints Musculoskeletal: back pain, bone/joint pain Neurologic: no complaints Psychological: depression Past Medical History none Past Surgical History Past Surgical Hx: no surgical history Family History Significant Family History: no pertinent family hx Social History Alcohol Use: none Smoking Status: Never smoker Drug Use: none Exam/Review of Systems Vital Signs Vitals Vital Signs Date Time Temp Pulse Resp B/P Pulse Ox O2 Delivery O2 Flow Rate FiO2 02/20/17 15:33 93 20 123/77 97 Room Air 02/20/17 10:33 97.9 Exam Constitutional: distress, frail Psych: anxiety, depression Head: normocephalic Eyes: nl conjunctiva ENMT: nl external ears & nose, nl lips & teeth Neck: non-tender, supple Respiratory: clear to auscultation Cardiovascular: regular rate and rhythm Gastrointestinal: soft Musculoskeletal: nl extremities to inspection Results Result Diagram: 02/20/17 1255 02/20/17 1255 Results 24 hrs Laboratory Tests Test 02/20/17 12:55 White Blood Count 7.4 Red Blood Count 4.49 Hemoglobin 13.7 Hematocrit 39.9 Mean Corpuscular Volume 88.9 Mean Corpuscular Hemoglobin 30.5 Mean Corpuscular Hemoglobin Concent 34.3 Red Cell Distribution Width 13.8 Platelet Count 355 Mean Platelet Volume 9.1 Neutrophils % 59.8 Lymphocytes % 25.0 Monocytes % 12.3 H Eosinophils % 1.8 Basophils % 0.8 Nucleated Red Blood Cells % 0.0 Neutrophils # 4.4 Lymphocytes # 1.9 Monocytes # 0.9 Eosinophils # 0.1 Basophils # 0.1 Nucleated Red Blood Cells # 0.0 Prothrombin Time 13.0 Prothrombin Time Ratio 1.0 INR International Normalized Ratio 0.98 Activated Partial Thromboplast Time 26.9 Sodium Level 139 Potassium Level 4.3 Chloride Level 101 Carbon Dioxide Level 31 Anion Gap 11 Blood Urea Nitrogen 12 Creatinine 0.61 Glucose Level 89 Calcium Level 9.4 Total Bilirubin 0.9 Direct Bilirubin 0.00 Indirect Bilirubin 0.9 Aspartate Amino Transf (AST/SGOT) 531 H Alanine Aminotransferase (ALT/SGPT) 870 H Alkaline Phosphatase 131 H Troponin I < 0.012 Total Protein 7.6 Albumin 4.0 Globulin 3.60 H Albumin/Globulin Ratio 1.11 Lipase 82 Medications Medications Current Medications Sodium Chloride (NS) 1,000 ml @ 80 mls/hr [id number] IV ; Start 02/20/17 at 16:26 ; Stop 02/21/17 at 04:55 MELONY TAVAREZ M.D. Feb 20, 2017 16:39
--- NOTE | 2017-02-20 16:41 | RADRPT ---
PROCEDURE: US Abdomen. CLINICAL INDICATION: Abnormal liver function tests TECHNIQUE: Multiple real-time images were acquired of the patient's abdomen and retroperitoneum ut ilizing a high resolution transducer. COMPARISON: None FINDINGS: The liver demonstrates normal echogenicity and normal size . No focal hepatic lesions. Patent portal vein. Nondistended gallbladder with multiple stones. No pericholecystic fluid or gallbladder wall t hickening. No intrahepatic or extrahepatic biliary dilatation. The common bile duct measures 4 mm in maximal dimension. The visualized portions of the pancreas are normal. Normal spleen size and n ormal echogenicity measuring 9.1 cm. The kidneys are normal size, and demonstrate normal echogenicity and morphology. The right kidney m easures 10.3 cm. The left kidney measures 9.6 cm. No hydronephrosis or perinephric fluid collectio ns. There are no areas of increased echogenicity to suggest nephrolithiasis. Normal caliber aorta a nd IVC. No peritoneal free fluid. IMPRESSION: Cholelithiasis without ultrasound evidence of cholecystitis. RPTAT:AAJJ Physician Heron Date Time Electronically viewed and signed by Physician Heron on 02/20/2017 16:41 /
[2017-02-20 17:21] VITALS: BP 112/59; RESP 18
[2017-02-20 20:00] VITALS: BP 115/55; RESP 19
[2017-02-20] MEDS ORDERED: morphine 2 MG INJ IV PRN (20:00)
[2017-02-20] MEDS ORDERED: NACL 0.9% 3 ML SYG IV SCH (20:00)
[2017-02-20] MEDS ORDERED: DOCUSATE SODIUM 100 MG CAP PO PRN (20:00)
[2017-02-20] MEDS ORDERED: ZOLPIDEM 5 MG TAB PO PRN (20:00)
[2017-02-20] MEDS ORDERED: MAGNESIUM HYDROXIDE 30ML CUP PO PRN (20:00)
[2017-02-21 02:00] VITALS: BP 107/60; RESP 19
[2017-02-21 05:24] LABS: HAAIG REFLEX REFLEX FILED
[2017-02-21 05:27] LABS: BASOPHIL # 0.1 10^3/ul (0.0-0.1); BASOPHILS % 0.8 % (0.0-2.0); EOSINOPHILS # 0.3 10^3/ul (0.0-0.5); EOSINOPHILS % 4.9 % (0.0-7.0); HEMATOCRIT 36.7 % (37.0-47.0); HEMOGLOBIN 12.6 g/dl (12.0-16.0); LYMPHOCYTES # 2.3 10^3/ul (0.8-2.9); LYMPHOCYTES % 34.6 % (15.0-51.0); MEAN CORPUSCULAR HEMOGLOBIN 30.3 pg (29.0-33.0); MEAN CORPUSCULAR HGB CONC 34.3 g/dl (32.0-37.0); MEAN CORPUSCULAR VOLUME 88.2 fl (82.0-101.0); MEAN PLATELET VOLUME 9.4 fl (7.4-10.4); MONOCYTE # 0.8 10^3/ul (0.3-0.9); MONOCYTES % 12.3 % (0.0-11.0); NEUTROPHIL # 3.1 10^3/ul (1.6-7.5); NEUTROPHILS % 47.2 % (39.0-77.0); PLATELET COUNT 340 10^3/UL (140-415); RED BLOOD COUNT 4.16 10^6/ul (4.20-5.40); RED CELL DISTRIBUTION WIDTH 13.9 % (11.5-14.5); WHITE BLOOD COUNT 6.6 10^3/ul (4.8-10.8)
[2017-02-21 05:55] LABS: ALANINE AMINOTRANSFERASE 743 IU/L (13-69); ALBUMIN 3.2 g/dl (3.3-4.9); ALBUMIN/GLOBULIN RATIO 0.96; ALKALINE PHOSPHATASE 104 IU/L (42-121); ANION GAP 10 (8-16); ASPARTATE AMINO TRANSFERASE 379 IU/L (15-46); BILIRUBIN,INDIRECT 0.8 mg/dl (0-1.1); BILIRUBIN,TOTAL 0.8 mg/dl (0.2-1.3); BLOOD UREA NITROGEN 11 mg/dl (7-20); CALCIUM 9.7 mg/dl (8.4-10.2); CARBON DIOXIDE 30 mmol/L (21-31); CHLORIDE 103 mmol/L (97-110); CREATININE 0.59 mg/dl (0.44-1.00); GLUCOSE 89 mg/dl (70-220); MAGNESIUM 1.8 mg/dl (1.7-2.5); PHOSPHORUS 4.4 mg/dl (2.5-4.9); POTASSIUM 4.6 mmol/L (3.5-5.1); SODIUM 138 mmol/L (135-144); TOTAL PROTEIN 6.5 g/dl (6.1-8.1)
[2017-02-21 06:44] LABS: HEPATITIS B CORE ANTIBODY NEGATIVE (NEGATIVE)
[2017-02-21 07:30] VITALS: BP 125/61; RESP 18
--- NOTE | 2017-02-21 07:32 | HP ---
Date/Time of Note Date/Time of Note DATE: 02/21/17 TIME: 07:24 Assessment/Plan VTE Prophylaxis VTE Prophylaxis Intervention: LMWH Lines/Catheters IV C[facility]from [facility] Saline Lock Urinary Cath still in place: No Assessment/Plan Assessment/Plan ASSESSMENT 61-year-old female with a history of lung cancer is metastasis to right femur who is admitted for elevated transaminases thought to be secondary to Tarceva PLAN Monitor LFTs Patient to be followed by her oncologist, Dr. Ramirez who already discontinued Tarceva Will provide pain meds as needed HPI/ROS Admit Date/Time Admit Date/Time 02/20/17 Hx of Present Illness This is a 61-year-old female with a history of lung cancer is metastasis to right femur who is admitted for abnormal LFTs. Patient was started on Tarceva last month and lab that was done as outpatient showed elevated AST and ALT. As such Tarceva was discontinued and she was told to come to the hospital for monitoring. She said over the past 2 weeks she has been having mild right upper quadrant pain. She also reported nausea but no vomiting. Denied chest pain, shortness of breath, cough, fever or chills. When she presented to the ER, AST was 531 and ALT 870. Ultrasound shows cholelithiasis without cholecystitis or dilated ducts. . ROS Eyes: no complaints ENT: no complaints Respiratory: no complaints Cardiovascular: lightheadedness, palpitations Gastrointestinal: no complaints Genitourinary: no complaints Musculoskeletal: back pain, bone/joint pain Neurologic: no complaints Psychological: anxiety, depression PMH/Family/Social Past Medical History Medical History: other (Metastatic lung cancer to right femur) Past Surgical History Past Surgical Hx: no surgical history Social History Alcohol Use: none Smoking Status: Never smoker Drug Use: none Exam/Review of Systems Vital Signs Vitals Vital Signs Date Time Temp Pulse Resp B/P Pulse Ox O2 Delivery O2 Flow Rate FiO2 02/21/17 02:00 97.5 83 19 107/60 97 02/20/17 15:33 Room Air Intake and Output 02/20/17 02/20/17 02/21/17 15:00 23:00 07:00 Intake Total 350 ml Balance 350 ml Exam Constitutional: alert, oriented, well developed Head: atraumatic, normocephalic Eyes: EOMI, PERRL Respiratory: clear to auscultation, normal air movement Cardiovascular: nl pulses, regular rate and rhythm Gastrointestinal: other (Mild right upper quadrant tenderness with no guarding or rigidity), soft Extremities: normal pulses Labs Result Diagram: 02/21/1745302/21/17453 Medications Medications Current Medications Ondansetron HCl (Zofran Inj) 4 mg Q6H PRN IV NAUSEA AND/OR VOMITING; Start at 20:00 Morphine Sulfate (morphine) 2 mg Q4H PRN IV SEVERE PAIN LEVEL 7-10; Start 02/20 at 20:00 Docusate Sodium (Colace) 100 mg Q12H PRN PO CONSTIPATION; Start 02/20/17 at 20: 00 Magnesium Hydroxide (Milk Of Mag) 30 ml DAILY PRN PO CONSTIPATION; Start at 20:00 Zolpidem Tartrate (Ambien) 5 mg QHS PRN PO SLEEP; Start 02/20/17 at 20:00 YURY ARELLANO MD Feb 21, 2017 07:32
[2017-02-21] MEDS ORDERED: ENOXAPARIN 40 MG/0.4 ML SYG SC SCH (09:00)
--- NOTE | 2017-02-21 12:11 | PDOCDIS ---
Discharge Instructions CONDITION Patient Condition: Fair HOME CARE INSTRUCTIONS: Diet Instructions: RegularSpecial Diet: REGULAR ACTIVITY: Activity Restrictions: Rest between Activity Avoid heavy lifting FOLLOW UP/APPOINTMENTS Follow-up Plan Please follow up with Dr. Ramirez within one week. 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 Ramirez within one week to continue to monitor liver function. MEGHAN DELGADO Feb 21, 2017 12:11
--- NOTE | 2017-02-21 12:23 | CONS ---
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 -given the EGFR positivity, pt was Tarceva at 150mg q day. this was started at 2016 -pt now presents with acute elevation of her LFTs; -will stop tarceva for now -once her LFTs' have normalized will likely need to start Afatinib at a dose reduced dose of 30mg q day #Increased LFTs -tarceva on hold -abdominal ultrasound shows gall stones -acute hep panel negative -transaminitis has improved #R femur pain secondary to bone involvement -this has largely improved since starting therapy. -no need for XRT at this time -pt to start Zometa as an out patient Ok with discharge per oncology. pt will have labs and follow up in 1 week Problems: Consultation Date/Type/Reason Admit Date/Time Feb 20, 2017 at 16:27 Initial Consult Date 02/20/17 Type of Consultation: Oncology Reason for Consultation elevated liver enzymes/ abnormal reaction to chemotherapy Referring Provider: RAVINDRA MARINELLI DO 24 HR Interval Summary Free Text/Dictation RUQ pain has improved. no nausea Exam/Review of Systems Vital Signs Vitals Vital Signs Date Time Temp Pulse Resp B/P Pulse Ox O2 Delivery O2 Flow Rate FiO2 02/21/17 07:30 98.5 75 18 125/61 96 02/20/17 15:33 Room Air Intake and Output 02/20/17 02/20/17 02/21/17 15:00 23:00 07:00 Intake Total 350 ml Balance 350 ml Exam Constitutional: alert, oriented Psych: no complaints Head: normocephalic Eyes: nl conjunctiva ENMT: nl external ears & nose Neck: supple Respiratory: clear to auscultation Cardiovascular: regular rate and rhythm Gastrointestinal: soft Skin: other (depressed) Results Result Diagram: 02/21/17 0454 02/21/17 0454 Results 24 hrs Laboratory Tests Test 02/20/17 12:55 02/21/17 04:54 White Blood Count 7.4 6.6 Red Blood Count 4.49 4.16 L Hemoglobin 13.7 12.6 Hematocrit 39.9 36.7 L Mean Corpuscular Volume 88.9 88.2 Mean Corpuscular Hemoglobin 30.5 30.3 Mean Corpuscular Hemoglobin Concent 34.3 34.3 Red Cell Distribution Width 13.8 13.9 Platelet Count 355 340 Mean Platelet Volume 9.1 9.4 Neutrophils % 59.8 47.2 Lymphocytes % 25.0 34.6 Monocytes % 12.3 H 12.3 H Eosinophils % 1.8 4.9 Basophils % 0.8 0.8 Nucleated Red Blood Cells % 0.0 0.0 Neutrophils # 4.4 3.1 Lymphocytes # 1.9 2.3 Monocytes # 0.9 0.8 Eosinophils # 0.1 0.3 Basophils # 0.1 0.1 Nucleated Red Blood Cells # 0.0 0.0 Prothrombin Time 13.0 Prothrombin Time Ratio 1.0 INR International Normalized Ratio 0.98 Activated Partial Thromboplast Time 26.9 Sodium Level 139 138 Potassium Level 4.3 4.6 Chloride Level 101 103 Carbon Dioxide Level 31 30 Anion Gap 11 10 Blood Urea Nitrogen 12 11 Creatinine 0.61 0.59 Glucose Level 89 89 Calcium Level 9.4 9.7 Total Bilirubin 0.9 0.8 Direct Bilirubin 0.00 0.00 Indirect Bilirubin 0.9 0.8 Aspartate Amino Transf (AST/SGOT) 531 H 379 H Alanine Aminotransferase (ALT/SGPT) 870 H 743 H Alkaline Phosphatase 131 H 104 Troponin I < 0.012 Total Protein 7.6 6.5 # Albumin 4.0 3.2 L Globulin 3.60 H 3.30 H Albumin/Globulin Ratio 1.11 0.96 Lipase 82 Hemoglobin A1c 5.7 Phosphorus Level 4.4 Magnesium Level 1.8 Hepatitis B Surface Antigen NEGATIVE Hepatitis B Core Total Antibody NEGATIVE Hepatitis C Antibody NEGATIVE Medications Medications Current Medications Ondansetron HCl (Zofran Inj) 4 mg Q6H PRN IV NAUSEA AND/OR VOMITING; Start at 20:00 Morphine Sulfate (morphine) 2 mg Q4H PRN IV SEVERE PAIN LEVEL 7-10; Start 02/20 at 20:00 Docusate Sodium (Colace) 100 mg Q12H PRN PO CONSTIPATION; Start 02/20/17 at 20: 00 Magnesium Hydroxide (Milk Of Mag) 30 ml DAILY PRN PO CONSTIPATION; Start at 20:00 Zolpidem Tartrate (Ambien) 5 mg QHS PRN PO SLEEP; Start 02/20/17 at 20:00 MELONY TAVAREZ M.D. Feb 21, 2017 12:23
--- NOTE | 2017-02-21 15:25 | DS ---
Date/Time of Note Date/Time of Note DATE: 02/21/17 TIME: 15:25 Discharge Summary Admission/Discharge Info Admit Date/Time Feb 20, 2017 at 16:27 Discharge Date/Time Feb 21, 2017 at 13:15 Patient Condition: Fair Hx of Present Illness This is a 61-year-old female with a history of lung cancer is metastasis to right femur who is admitted for abnormal LFTs. Patient was started on Tarceva last month and lab that was done as outpatient showed elevated AST and ALT. As such Tarceva was discontinued and she was told to come to the hospital for monitoring. She said over the past 2 weeks she has been having mild right upper quadrant pain. She also reported nausea but no vomiting. Denied chest pain, shortness of breath, cough, fever or chills. When she presented to the ER, AST was 531 and ALT 870. Ultrasound shows cholelithiasis without cholecystitis or dilated ducts. . Hospital Course Diagnosis Elevated AST and ALT Metastatic lung cancer to the right femur Mild right upper quadrant pain Muscle spasm of toes, chronic Patient is a 61-year-old female with past medical history significant for metastatic lung cancer with metastases to the bone of the femur who presented to [facility] as a transfer after her oncologist found elevated AST and ALT. Patient was monitored in the hospital and ultrasound of the abdomen was done which only showed cholelithiasis with no evidence of cholecystitis. Patient's abdominal pain has subsided and was cleared by her oncologist, Dr. Ramirez, to be discharged and at bedside her daughter already has a lab slip to for patient to redraw liver blood work within 1 week and she also has an appointment to see her oncologist within 1 week. Patient feels well and wants to go home and will be discharged to follow with her oncologist as soon as possible. Home Meds Discontinued Reported Medications Erlotinib* (Tarceva*) 150 Mg Tablet, 150 MG PO DAILY, #30 02/20/17 Olanzapine* (Zyprexa*) 10 Mg Tablet, 10 MG PO QHS, #30 TAB 02/20/17 Simvastatin* (Zocor*) 40 Mg Tablet, 40 MG PO QHS, #30 TAB 02/20/17 Risperidone* (Risperdal*) 1 Mg Tablet, 1 MG PO DAILY, TAB 02/20/17 Olanzapine* (Zyprexa*) 5 Mg Tablet, 5 MG PO DAILY, #30 TAB 02/20/17 Multivitamin* (Daily Value*) 1 Each Tablet, 1 TAB PO DAILY, TAB 02/20/17 Metformin* (Glucophage*) 1,000 Mg Tablet, 1000 MG PO BID, #60 TAB 02/20/17 Levothyroxine Sodium* (Levothyroxine Sodium*) 75 Mcg Tablet, 75 MCG PO BEFORE BREAKFAST, #30 TAB 02/20/17 Aspirin* (Aspirin* Chew) 81 Mg Tab.chew, 81 MG PO DAILY, TAB.CHEW 02/20/17 Amlodipine Besylate* (Amlodipine Besylate*) 2.5 Mg Tablet, 2.5 MG PO DAILY, #30 TAB 02/20/17 Follow-up Plan Please follow up with Dr. Ramirez within one week. 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 Ramirez within one week to continue to monitor liver function. Primary Care Provider Not On Staff Doctor Time spent on discharge: > 30 minutes Pending Labs Laboratory Tests Test 02/21/17 04:54 White Blood Count 6.610^3/ul (4.8-10.8) Red Blood Count 4.1610^6/ul (4.20-5.40) Hemoglobin 12.6g/dl (12.0-16.0) Hematocrit 36.7% (37.0-47.0) Mean Corpuscular Volume 88.2fl (82.0-101.0) Mean Corpuscular Hemoglobin 30.3pg (29.0-33.0) Mean Corpuscular Hemoglobin Concent 34.3g/dl (32.0-37.0) Red Cell Distribution Width 13.9% (11.5-14.5) Platelet Count 66423^3/UL (140-415) Mean Platelet Volume 9.4fl (7.4-10.4) Neutrophils % 47.2% (39.0-77.0) Lymphocytes % 34.6% (15.0-51.0) Monocytes % 12.3% (0.0-11.0) Eosinophils % 4.9% (0.0-7.0) Basophils % 0.8% (0.0-2.0) Nucleated Red Blood Cells % 0.0/100WBC (0.0-0.0) Neutrophils # 3.110^3/ul (1.6-7.5) Lymphocytes # 2.310^3/ul (0.8-2.9) Monocytes # 0.810^3/ul (0.3-0.9) Eosinophils # 0.310^3/ul (0.0-0.5) Basophils # 0.110^3/ul (0.0-0.1) Nucleated Red Blood Cells # 0.010^3/ul (0.0-0.0) Sodium Level 138mmol/L (135-144) Potassium Level 4.6mmol/L (3.5-5.1) Chloride Level 103mmol/L (97-110) Carbon Dioxide Level 30mmol/L (21-31) Anion Gap 10 (8-16) Blood Urea Nitrogen 11mg/dl (7-20) Creatinine 0.59mg/dl (0.44-1.00) Glucose Level 89mg/dl (70-220) Hemoglobin A1c 5.7% (0-5.9) Calcium Level 9.7mg/dl (8.4-10.2) Phosphorus Level 4.4mg/dl (2.5-4.9) Magnesium Level 1.8mg/dl (1.7-2.5) Total Bilirubin 0.8mg/dl (0.2-1.3) Direct Bilirubin 0.00mg/dl (0.00-0.20) Indirect Bilirubin 0.8mg/dl (0-1.1) Aspartate Amino Transf (AST/SGOT) 379IU/L (15-46) Alanine Aminotransferase (ALT/SGPT) 743IU/L (13-69) Alkaline Phosphatase 104IU/L (42-121) Total Protein 6.5g/dl (6.1-8.1) Albumin 3.2g/dl (3.3-4.9) Globulin 3.30g/dl (1.3-3.2) Albumin/Globulin Ratio 0.96 Hepatitis B Surface Antigen NEGATIVE (NEGATIVE) Hepatitis B Core Total Antibody NEGATIVE (NEGATIVE) Hepatitis C Antibody NEGATIVE (NEGATIVE) MEGHAN DELGADO Feb 21, 2017 15:25
== END 2017-02-21 13:15 | disposition home or self-care (01) | DRG 181 ==
LOC: E/R 10:28 → MS1 16:27
PROVIDERS: ADMIT Internal Medicine; ATTEND Internal Medicine
DX: C34.12 Malignant neoplasm of upper lobe, left bronchus or lung (principal); C79.51 Secondary malignant neoplasm of bone; R94.5 Abnormal results of liver function studies; F17.210 Nicotine dependence, cigarettes, uncomplicated; F41.9 Anxiety disorder, unspecified; F32.9 Major depressive disorder, single episode, unspecified
CPT/HCPCS: 36415; 71010; 76700; 80053; 83036; 83690; 83735; 84100; 84484; 85025; 85610; 85730; 86704; 86709; 86803; 87340; J1650; J7030

== ENCOUNTER 2017-09-16 12:52 | Emergency (ER) | END 2017-09-16 17:15 | disposition home or self-care (01) ==

== ENCOUNTER 2017-11-26 07:21 | Day surgery (SDC) | END 2017-11-26 16:05 | disposition home or self-care (01) ==

== ENCOUNTER 2017-12-14 00:17 | Emergency (ER) | END 2017-12-14 03:58 | disposition home or self-care (01) ==

== ENCOUNTER 2018-02-14 11:17 | Inpatient (IN) | END 2018-02-17 13:00 | disposition home or self-care (01) | DRG 180 ==